=== PATIENT | female | born 1960 | race Caucasian/White ===

== ENCOUNTER 2019-07-27 08:49 | Outpatient (CLI) | payer OTHER, SELFPAY ==
--- NOTE | 2019-07-27 11:00 | NEURO_ITS ---
Patient Number: [id number] Impression: # Complains of numbness of hands and feet. # Neuropathy involving lower extremities more than upper extremities with superimposed mild bilateral Carpal Tunnel Syndrome and left ulnar neuropathy across the elbow. # Needle/EMG exam revealed mild neurogenic changes in left 1st DI and APB. Nerve Conduction Studies Anti Sensory Summary Table Stim Site NR Peak (ms) P-T Amp (?V) Site1 Site2 Delta-P (ms) Dist (cm) Kamlesh (m/s) Left Median Anti Sensory (2-3nd Digit) Wrist 3.1 53.4 Wrist 2-3nd Digit 3.1 14.0 45 Wrist 3.3 36.2 Wrist 2-3nd Digit 3.1 14.0 45 Right Median Anti Sensory (2-3nd Digit) Wrist 3.1 48.1 Wrist 2-3nd Digit 3.1 14.0 45 Wrist 3.1 49.2 Wrist 2-3nd Digit 3.1 14.0 45 Left Radial Anti Sensory (Base 1st Digit) Wrist 2.5 35.1 Wrist Base 1st Digit 2.5 0.0 Right Radial Anti Sensory (Base 1st Digit) Wrist 2.5 13.6 Wrist Base 1st Digit 2.5 0.0 Left Sup Fibular Anti Sensory (Ant Lat Mall) 14 cm 4.0 11.4 14 cm Ant Lat Mall 4.0 16.0 40 Right Sup Fibular Anti Sensory (Ant Lat Mall) 14 cm 3.9 8.1 14 cm Ant Lat Mall 3.9 16.0 41 Left Sural Anti Sensory (Lat Mall) Calf 4.7 7.5 Calf Lat Mall 4.7 16.0 34 Right Sural Anti Sensory (Lat Mall) Calf 4.7 6.6 Calf Lat Mall 4.7 16.0 34 Left Ulnar Anti Sensory (5th Digit) Wrist 3.2 47.0 Wrist 5th Digit 3.2 14.0 44 Right Ulnar Anti Sensory (5th Digit) Wrist 2.8 64.0 Wrist 5th Digit 2.8 14.0 50 Motor Summary Table Stim Site NR Onset (ms) O-P Amp (mV) Site1 Site2 Delta-0 (ms) Dist (cm) Kamlesh (m/s) Left Median Motor (Abd Poll Brev) Wrist 5.7 4.1 Elbow Wrist 5.7 28.0 49 Elbow 11.4 4.6 Right Median Motor (Abd Poll Brev) Wrist 5.2 3.0 Elbow Wrist 5.7 28.0 49 Elbow 10.9 2.4 Left Peroneal Motor (Vastus Med) Ankle 8.2 1.8 Popit Ankle 10.2 37.0 36 Popit 18.4 1.6 Right Peroneal Motor (Vastus Med) Ankle 9.2 2.0 Popit Ankle 9.2 35.0 38 Popit 18.4 1.6 Left Tibial Motor (Abd Wasserman Brev) Ankle 9.4 1.1 Knee Ankle 10.5 40.0 38 Knee 19.9 1.3 Right Tibial Motor (Abd Wasserman Brev) Ankle 7.0 2.8 Knee Ankle 11.0 41.0 37 Knee 18.0 2.0 Left Ulnar Motor (Abd Dig Minimi) Wrist 4.3 5.8 A Elbow Wrist 7.4 29.0 39 A Elbow 11.7 4.6 B Elbow Wrist 5.0 23.0 46 B Elbow 9.3 3.9 Right Ulnar Motor (Abd Dig Minimi) Wrist 3.7 3.8 A Elbow Wrist 6.1 29.0 48 A Elbow 9.8 1.8 F Wave Studies NR F-Lat (ms) L-R F-Lat (ms) Left Median (Mrkrs) (Abd Poll Brev) 31.75 0.82 Right Median (Mrkrs) (Abd Poll Brev) 32.57 0.82 Left Peroneal (Mrkrs) (EDB) 61.10 0.57 Right Peroneal (Mrkrs) (EDB) 60.53 0.57 Left Tibial (Mrkrs) (Abd Hallucis) 60.76 2.22 Right Tibial (Mrkrs) (Abd Hallucis) 62.98 2.22 Left Ulnar (Mrkrs) (Abd Dig Min) 30.92 0.00 Right Ulnar (Mrkrs) (Abd Dig Min) 30.92 0.00 EMG Side Muscle Nerve Root Ins Act Fibs Amp Dur Recrt Comment Right 1stDorInt Ulnar C8-T1 Nml Nml Nml Nml Nml Right Ext Indicis Radial (Post Int) C7-8 Nml Nml Nml Nml Nml Right Ext Digitorum Radial (Post Int) C7-8 Nml Nml Nml Nml Nml Right BrachioRad Radial C5-6 Nml Nml Nml Nml Nml Right Pro
== END 2019-07-27 08:50 | disposition home or self-care (01) ==
PROVIDERS: PCP Family Medicine; Visit Provider Psychiatry & Neurology Neurology
DX: G12.20 Motor neuron disease, unspecified (principal); G56.03 Carpal tunnel syndrome, bilateral upper limbs; G56.22 Lesion of ulnar nerve, left upper limb
CPT/HCPCS: 95886; 95913

== ENCOUNTER 2021-12-19 08:35 | Outpatient (CLI) | payer OTHER, SELFPAY ==
--- NOTE | ~2021-12-19 | MM_ITS ---
EXAMINATION: MM screening miri BI w breanna HISTORY: Screening mammogram TECHNIQUE: Craniocaudal and mediolateral oblique 3-D tomosynthesis images were obtained and synthetic 2-D images were generated. CAD analysis was submitted and interpreted. COMPARISON: 01/15/2017, 09/28/2015 bilateral screening mammogram examinations BREAST PARENCHYMAL COMPOSITION: There are scattered areas of fibroglandular density. FINDINGS: There is a biopsy marker in the left breast; history of prior benign left breast biopsy in 2012. Stable benign small circumscribed lymph node in the posterior upper right breast on MLO view, u nchanged since 01/15/2017. There is no evidence of suspicious mass, calcification, or architectural d istortion to suggest malignancy in either breast. There has been no suspicious interval change. IMPRESSION: 1. No mammographic evidence of malignancy. 2. Recommend routine screening mammography in one year. BI-RADS Category 2: Benign finding(s). Reviewed, dictated and finalized at location A.
== END 2021-12-19 08:36 | disposition home or self-care (01) ==
LOC: ANHIMG 08:37
PROVIDERS: PCP Family Medicine; Visit Provider Obstetrics & Gynecology
DX: Z12.31 Encounter for screening mammogram for malignant neoplasm of breast (principal)
CPT/HCPCS: 77063; 77067

== ENCOUNTER → 2022-01-14 14:57 | Outpatient (CLI) | payer OTHER, SELFPAY ==
--- NOTE | ~2022-01-14 | DEXA_ITS ---
Bone Density Report Name: MOR MEAD Age: 61 Sex: Female Ethnicity: White Date of : 1960 Indication: postmenopausal; screening for osteoporosis; hysterectomy; Referring Provider: GADIEL, AMAYA Montelongo Study: Bone densitometry was performed. Exam Date: January 14, 2022 Accession number: [id number] Bone Density: Region BMD T-score Z-score Classification AP Spine (L1-L4) 1.187 1.3 2.7 Normal Femoral Neck (Left) 0.741 -1.0 0.3 Normal Total Hip (Left) 0.881 -0.5 0.5 Normal Femoral Neck (Right) 0.720 -1.2 0.1 Osteopenia Total Hip (Right) 0.870 -0.6 0.4 Normal Total Hip Mean 0.876 -0.6 0.5 Normal World Health Organization criteria for BMD impression classify patients as: Normal (T-score at or above -1.0), Osteopenia (T-score between -1.0 and -2.5), or Osteoporosis (T-score at or below -2.5). 10-year Fracture Risk(1): Major Osteoporotic Fracture 6.7% Hip Fracture 0.8% Reported Risk Factors: [place] (), Neck BMD=0.720, BMI=21.1, smoking (1) FRAX(R) Version 3.08. Fracture probability calculated for an untreated patient. Fracture probability may be lower if the patient has received treatment. Clinical Information Provided by Patient: Smokes Has used the following medications: Vitamin D Has the following medical conditions: Hysterectomy Patient maximum height was 67.75 Menopause Age: 41 Drinks caffeinated beverages Onset of menses at age 12 Number of children 2 Impression: The patient has low bone mass, based on the Right Femoral Neck T-score. The patient has an estimated ten-year risk of hip fracture of 0.8% and an estimated ten-year risk of major fracture of 6.7%, based on the WHO FRAX algorithm. The patient has risk factors, including: smoking. Discussion: BONE DENSITY IS LOW AT ONE OR MORE SKELETAL SITES. This patient's lowest T-score is low at one or more skeletal sites. It meets the World Health Organization's (WHO) criteria for ?low bone mass? (T-score between -1.0 and -2.5). The patient's 10-year risk of fracture as calculated by FRAX is less than the threshold where pharmacological therapy is recommended by the National Osteoporosis Foundation (NOF). However, all treatment decisions require clinical judgment and consideration of individual patient factors, including patient preferences, comorbidities, previous drug use, risk factors not captured in the FRAX model (e.g., frailty, falls, vitamin D deficiency, increased bone turnover, interval significant decline in bone density) and possible under or overestimation of fracture risk by FRAX. The patient should follow a healthful lifestyle (good nutrition with adequate calcium and vitamin D, and appropriate weight-bearing exercise). Follow-Up: Consider repeating this study in 2 to 3 years to reassess this patient's status,
== END ==
PROVIDERS: PCP Family Medicine; Visit Provider Family Medicine
DX: Z78.0 Asymptomatic menopausal state (principal); Z72.0 Tobacco use; M85.851 Other specified disorders of bone density and structure, right thigh
CPT/HCPCS: 77080

== ENCOUNTER → 2022-01-26 15:25 | Outpatient (CLI) | payer OTHER, SELFPAY ==
--- NOTE | ~2022-01-26 | CT_ITS ---
EXAMINATION: CT lung screening DATE: 01/26/2022 15:47 INDICATION: Personal history of nicotine dependence, current smoker with 45 pack year history TECHNIQUE: Computed tomography (CT) of the chest was performed without intravenous contrast. The dose -length product (DLP) was 44.83 mGy-cm. Automated exposure control and iterative reconstruction techn [employer] were employed. COMPARISON: None FINDINGS: The lungs are free of acute opacities. There is mild emphysema. No suspicious pulmonary nod ules are identified. No pleural effusion or pneumothorax. No pathologically enlarged thoracic lymph n odes are identified. The heart size is normal. There is moderate thoracic spondylosis. IMPRESSION: 1. Lung-RADS category 1: Negative. Continue annual screening with noncontrast low-dose chest CT in 12 months. Reviewed, dictated and finalized at location B. TRICAL MECHANICAL TECHNICIAN IMPRESSION: 1. Lung-RADS category 1: Negative. Continue annual screening with noncontrast l ow-dose chest CT in 12 months.
== END ==
PROVIDERS: PCP Family Medicine; Visit Provider Family Medicine
DX: Z12.2 Encounter for screening for malignant neoplasm of respiratory organs (principal); Z87.891 Personal history of nicotine dependence
CPT/HCPCS: 71271

== ENCOUNTER 2023-12-17 09:13 | Outpatient (CLI) | payer OTHER, SELFPAY ==
--- NOTE | ~2023-12-17 | MR_ITS ---
Procedure: MR lumbar spine wo con Ordering provider: Sampson Rebollar MD History: . low back pain, spondylosis with myelopathy . Comparison: March 09, 2012 Technique: MRI thoracic spine without contrast. FINDINGS: SPINAL CORD: Normal. VERTEBRAL BODIES: Normal height and alignment. No compression fracture. Normal marrow signal. DISK SPACES: Degenerative disc disease at the level of L5-S1. T12-L1: bilateral facet joint disease. L1-L2: Sequestrated disc is seen posterior to L2. Other differential includes small meningioma. L2-L3: Mild spinal canal stenosis. Thickening of the ligamenta flava slight narrowing of the foramina more on the right side. L3-L4: Moderate to severe spinal canal stenosis. Diffuse disc bulge with thickening of the ligamenta flava. Bilateral narrowing of the foramina. L4-L5: Severe spinal canal stenosis. Diffuse disc bulge with thickening of the ligamenta flava. Bilat eral facet joint disease. Bilateral narrowing of the foramina with root compression PARASPINOUS SOFT TISSUES: Normal. IMPRESSION: No compression fracture. Multilevel spinal canal stenosis, thickening of the ligamenta flava and intervertebral foraminal narr owing. Sequestrated disc seen posterior to L2. Reviewed, dictated and finalized at location A. IMPRESSION: No compression fracture. Multilevel spinal canal stenosis, thickening of the ligamenta flava and interve rtebral foraminal narrowing. Sequestrated disc seen posterior to L2.
== END 2023-12-17 09:14 | disposition home or self-care (01) ==
LOC: GOSHIMG 09:16
PROVIDERS: PCP Emergency Medicine; Visit Provider Emergency Medicine
DX: M48.061 Spinal stenosis, lumbar region without neurogenic claudication (principal); M51.26 Other intervertebral disc displacement, lumbar region
CPT/HCPCS: 72148

== ENCOUNTER 2023-12-17 09:57 | Outpatient (CLI) | payer OTHER, SELFPAY ==
[2023-12-17 14:19] LABS: Alanine Aminotransferase 19 U/L (6-35); Albumin Level 4.4 g/dL (3.5-5.1); Alkaline Phosphatase 86 U/L (38-126); Anion Gap 5 mmol/L (4-12); Aspartate Amino Transferase 53 U/L (14-36); Bilirubin,Total 0.3 mg/dL (0.2-1.3); Blood Urea Nitrogen 11 mg/dL (7-17); Calcium 9.3 mg/dL (8.4-10.2); Carbon Dioxide 31 mmol/L (22-30); Chloride 102 mmol/L (98-107); Cholesterol 269 mg/dL (0-200); Estimated Glomerular Filt Rate > 60; Glucose 89 mg/dL (65-110); HDL Direct 77 mg/dL; Potassium 4.5 mmol/L (3.4-5.0); Sodium 138 mmol/L (137-145); Triglycerides 64 mg/dL (<150)
[2023-12-17 14:31] LABS: LDL Cholesterol Direct 165 mg/dL
== END 2023-12-17 09:58 | disposition home or self-care (01) ==
LOC: ANHGOSHLAB 09:58
PROVIDERS: PCP Emergency Medicine; Visit Provider Emergency Medicine
DX: E78.5 Hyperlipidemia, unspecified (principal)
CPT/HCPCS: 36415; 80053; 80061

== ENCOUNTER 2024-03-31 09:02 | Emergency (ER) | payer OTHER, SELFPAY ==
--- NOTE | ~2024-03-31 | CT_ITS ---
EXAMINATION: CT lumbar spine wo con DATE: 03/31/2024 11:48 INDICATION: Right-sided lumbar radiculopathy. TECHNIQUE: Computed tomography (CT) of the lumbar spine was performed without intravenous contrast. A utomated exposure control and iterative reconstruction technique were employed. The dose-length produ ct was 278.45 mGy-cm. COMPARISON: Lumbar spine MRI 12/17/2023 FINDINGS: There is 4 degrees levocurvature of lumbar spine. Vertebral body heights are normal. There is mildly decreased disc height at L3-L4 and L5-S1. The following disc levels are specifically discus sed: L1-L2: The disc is bulging. There is mild bilateral facet joint osteoarthritis. There is mild bilater al neural foraminal stenosis. There is mild central canal stenosis. L2-L3: The disc is bulging. There is a sequestered disc posterior to L2 vertebral body. There is manny re right and moderate left facet joint osteoarthritis. There is moderate right and mild left neural f oraminal stenosis. There is mild central canal stenosis. L3-L4: The disc is bulging. There is severe bilateral facet joint osteoarthritis. There is moderate b ilateral neural foraminal stenosis. There is mild central canal stenosis. L4-L5: The disc is bulging. There is severe bilateral facet joint osteoarthritis. There is moderate b ilateral neural foraminal stenosis. There is mild central canal stenosis. L5-S1: The disc is bulging. There is severe bilateral facet joint osteoarthritis. There is mild bilat eral neural foraminal stenosis. There is mild central canal stenosis. IMPRESSION: 1. Moderate lumbar spondylosis, stable from 12/17/2023. Reviewed, dictated and finalized at location A. RPRISE BUSINESS ARCHITECT
[2024-03-31 09:03] VITALS: BP 130/64; PULSE 72; RESP 16; TEMP 36.6; O2SAT 100
--- NOTE | 2024-03-31 11:33 | ED_ITS ---
HPI - Back Pain/Injury General Chief Complaint: Back Pain/Injury Stated Complaint: back pain Time Seen by Provider: 03/31/24 11:15 Source: patient Mode of arrival: ambulatory Limitations: no limitations History of Present Illness HPI Narrative: This is a 63-year-old female with PMH of chronic lumbar stenosis and right sciatica presents to the ED for chief complaint of low back pain. States that over the past week and half she has had increased right lower back pain that radiates into the right buttock and for thigh. She states occasionally the pain radiates to the right foot. States that occasionally she will get a numbness/tingling sensation to the right foot. Denies groin numbness, bowel or bladder dysfunction, fevers, chills. Denies extremity weakness. Denies any left-sided symptoms. States she has been seen by pain management the past and told that she needs to see Neurosurgery, however does not want to have any surgery. Related Data Home Medications ?Medication ?Instructions ?Recorded ?Confirmed ?Last Taken ?Type duloxetine 60 mg capsule,delayed 60 mg PO DAILY 05/22/19 02/25/24 Unknown History release (Cymbalta) trazodone 50 mg tablet 200 mg PO .qhs 05/22/19 02/25/24 Unknown History lamotrigine 100 mg tablet 150 mg PO DAILY 06/04/23 02/25/24 Unknown History (Lamictal) Allergies Allergy/AdvReac Type Severity Reaction Status Date / Time No Known Allergies Allergy Verified 02/25/24 11:03 Review of Systems Review of Systems: All systems as dictated in [facility] Family History Family History Father Depression Social History Social History Smoking status: Current every day smoker (1 ppd for 40+ years) Alcohol intake: never Substance use: never Substance use type: does not use Do You Feel Safe in your Home?: Yes Lack of Transportation: No Lack of Food: Never True Current Housing: I Have Housing Concerned About Future Housing: No Difficulty Paying Gas/Electric Bills: No Difficulty Paying for Meds: No Currently Unemployed: No Education: Don't Know Difficulty w/ Childcare or Family Care: No Living arrangements: with family Occupation/Education: occupation Gender identity (if verbalized by the patient): Female Sexual Orientation (if Verbalized by the Patient): Straight or Heterosexual Spiritual care concerns: No Agree to blood products: No Exam Narrative: GENERAL: Well-appearing, well-nourished, and in no acute distress. HEAD: Normocephalic, atraumatic. EYES: PERRLA and EOMI. ENT: Nares clear, no rhinorrhea or epistaxis. Mucous membranes moist. Oropharynx without tonsillar hypertrophy exudate or other lesions. NECK: Supple. No adenopathy or masses. CHEST: No respiratory distress. Clear to auscultation. No wheezes rales or rhonchi HEART: Regular rate and rhythm. No murmur heard. Normal peripheral pulses. ABDOMEN: Soft, nontender, nondistended, normal active bowel sounds. MSK: Normal range of motion. No edema. No midline spinal tenderness. Positive straight leg raise on the right. Negative SLR on the left. 5/5 strength and sensation in the upper and lower extremities SKIN: Warm, dry, no rash. NEURO: Alert and oriented x4. No focal deficits. PSYCH: Normal mood and affect. Course Vital Signs Vital signs: Vital Signs Temperature 97.9 F 03/31/24 09:03 Pulse Rate 72 03/31/24 09:03 Respiratory Rate 16 03/31/24 09:03 Blood Pressure 130/64 03/31/24 09:03 Pulse Oximetry 100 03/31/24 09:03 Oxygen Delivery Room Air 03/31/24 09:03 Temperature 97.8 F 03/31/24 12:00 Pulse Rate 74 03/31/24 12:00 Respiratory Rate 16 03/31/24 12:00 Blood Pressure 143/90 H 03/31/24 12:00 Pulse Oximetry 100 03/31/24 12:00 Oxygen Delivery Room Air 03/31/24 09:03 MDM - Back Pain/Injury MDM Narrative Medical decision making narrative: This is a this 63-year-old female with acute on chronic sciatica. Vitals are normal. No red flag back signs today. Exam remarkable for the above straight leg raise positive on the right. No red flag back signs on exam CT imaging of the lumbar spine without contrast: IMPRESSION: 1. Moderate lumbar spondylosis, stable from 12/17/2023. Presentation consistent with lumbar stenosis, radiculopathy. On re- evaluation, Patient is doing mildly better. States the pain is still there but it is more tolerable. She is visibly more comfortable and able to sit in the chair at this point, which she could not do earlier. Encouraged continue taking her normal pain medications and contact her prescriber of tramadol. Rx for new Medrol Dosepak. Patient will be discharged in stable condition. Supportive measures discussed and return precautions given. Patient is understanding and agreeable with plan for discharge with PCP follow-up. Differential Diagnosis Differential diagnosis: Likely lumbar radiculopathy, sciatica, strain of lumbar region, pyelonephritis, thoracic back pain and discitis Discharge Plan Discharge Clinical Impression: Lumbar radiculopathy Patient Disposition: Home, Self-Care Condition: Stable Instructions: Antibiotic Form, Lumbar Radiculopathy (ED) Additional Instructions: Your exam and imaging shows stable lumbar stenosis from previous scans. Please continue taking your regular pain medications. Use Medrol Dosepak as prescribed for steroid pack. Follow-up with neurosurgery. If you have any new or worsening symptoms please return to the ER for further evaluation. Patient Language: Kinyarwanda Prescriptions: New methylprednisolone [Medrol (Robles)] 4 mg tablets,dose pack See Rx Instructions .ROUTE .COMPLEX Qty: 21 0RF Rx Instructions: for 6 days No Action duloxetine [Cymbalta] 60 mg capsule,delayed release(DR/EC) 60 mg PO DAILY trazodone 50 mg tablet 200 mg PO .qhs lamotrigine [Lamictal] 100 mg tablet 150 mg PO DAILY rosuvastatin 5 mg tablet 5 mg PO DAILY Qty: 90 0RF valacyclovir 1 gram tablet 1,000 mg PO Q12H Qty: 4 3RF tramadol 50 mg tablet 50 mg PO Q12H PRN (Reason: pain) Qty: 60 2RF cyclobenzaprine 5 mg tablet 5 mg PO BID PRN (Reason: muscle spasm) Qty: 60 1RF Follow-up/Referrals: Koki Car MD [Physician] - Angelita Garcia DO [Primary Care Provider] - Time of Disposition: 13:07
[2024-03-31 12:00] VITALS: BP 143/90; PULSE 74; RESP 16; TEMP 36.6; O2SAT 100
[2024-03-31] MEDS: ACETAMINOPHEN 500 MG TABLET 1000 MG PO (12:12)
[2024-03-31] MEDS: diazePAM INJ (*CRX) 10 MG/2 ML SYRINGE 5 MG IV PUSH (12:13)
[2024-03-31] MEDS: LIDOCAINE 5% PATCH 1 PATCH TRANSDERM (12:14)
[2024-03-31] MEDS: KETOROLAC 15 MG/ML VIAL (*BKC) 30 MG IV PUSH (12:16)
== END 2024-03-31 13:34 | disposition home or self-care (01) ==
PROVIDERS: Emergency Provider Physician Assistant; PCP Family Medicine
DX: M47.26 Other spondylosis with radiculopathy, lumbar region (principal); F17.210 Nicotine dependence, cigarettes, uncomplicated
CPT/HCPCS: 72131; 96374; 96375; 99284; A9270; J1885; J3360

== ENCOUNTER 2024-05-15 09:00 | Outpatient (RCR) | payer OTHER, SELFPAY ==
--- NOTE | 2024-04-11 14:41 | OPREHPOC ---
Outpatient Therapy Plan of Care This is a Multidisciplinary Plan of Care that may contain components documented by all disciplines (PT, OT, and ST.) PT Problem 1 PT Problem #1 Knowledge Deficit PT Goal 1 Goal / Goal Update 1. Pt to be IND with issued HEP Target Visit 10 PT Problem 2 PT Problem #2 Pain PT Goal 1 Goal / Goal Update 1. Pt to report low back pain no greater than 3/10 in the last week, 2. Pt to decline radicular symptoms in the last week 3. Pt to report 75% return to PLOF. PT Problem 3 PT Problem #3 Impaired Functional Mobility PT Goal 1 Goal / Goal Update 1. Pt to lift 20lb from ground level with good mechanics and without an increase in symptoms.
--- NOTE | 2024-04-11 14:41 | PTOPEVAL1 ---
Assessment and note entered by Kimberlyn Alexander, PT, DPT Evaluation Information Assessment Status Evaluation Diagnosis lumbar radiculopathy ICD-10 Condition Codes (PT) Pain in low back M54.50,Radiculopathy, lumbar region M54.16 Subjective Information Pt states a long history of back pain. States a couple of weeks ago she tweaked her back, she went to the ER and they were unable to help her. Pt states she had a prescription for tramadol but took this too frequently and cannot get a refill for 4 more days. She has been given muscle relaxers, a steroid, and pain meds. She has a pain management follow up next week and an appointment with neurosurgery in May. She reports radiating symptoms down the entire length of her R leg, states her leg is numb and always cold. Pt is retired, pt enjoys working out and riding the motorcycle with her . Reported Pain Level Pain Score 4: Self Report Assessment PT Clinical Summary Pt presents to therapy today for her initial evaluation with a diagnosis of sciatic pain, she demonstrates s/s consistent with piriformis syndrome with sciatic nerve irritation. There is weakness of her lateral hip abductors, tenderness to palpation of her R piriformis, radicular pain down her R leg, and a (+) slump test on the R. Skilled therapy services are indicated to address the deficits noted above, to manage pain, and to return to PLOF. Plan of Care Interventions Electrical Stimulation,Gait Training,Hot Pack/Cold Pack,Manual Therapy,Neuro Re-education,Patient/ Caregiver Education,Therapeutic Activities, Therapeutic Exercise PT Services Indicated Yes Treatment Frequency and 2x/wk for 10 visits Duration These treatments will address the objective and functional deficits as defined above. The patient will be advanced safely and appropriately in order for the patient to progress towards his/her prior level of function. Additional exercises will be introduced and as well as a comprehensive home exercise program upon discharge, if needed, ?to ensure carryover of functional gains achieved in the clinic. This treatment plan has been reviewed and agreement upon by the patient.
--- NOTE | 2024-04-21 14:28 | PCPTNOTE ---
Patient no showed to appointment this date. Called and spoke with patient who states she forgot she had an appointment this date,
--- NOTE | 2024-04-26 14:38 | PCPTNOTE ---
Pts appointment had to be rescheduled d/t the treatment therapist being out of the office d/t illness.
--- NOTE | 2024-05-15 09:54 | OPREHPOC ---
Outpatient Therapy Plan of Care This is a Multidisciplinary Plan of Care that may contain components documented by all disciplines (PT, OT, and ST.) PT Problem 1 PT Problem #1 Knowledge Deficit PT Goal 1 Goal / Goal Update 1. Pt to be IND with issued HEP Target Visit 10 Progress Met PT Problem 2 PT Problem #2 Pain PT Goal 1 Goal / Goal Update 1. Pt to report low back pain no greater than 3/10 in the last week, 2. Pt to decline radicular symptoms in the last week 3. Pt to report 75% return to PLOF. 05/15/24: 1-2. met 3. met, reports 95% Progress Met PT Problem 3 PT Problem #3 Impaired Functional Mobility PT Goal 1 Goal / Goal Update 1. Pt to lift 20lb from ground level with good mechanics and without an increase in symptoms. 05/15/24: met, 25lb Progress Met
--- NOTE | 2024-05-15 09:54 | PTOPEVAL1 ---
Assessment and note entered by Kimberlyn Alexander, PT, DPT Evaluation Information Assessment Status Discharge Diagnosis lumbar radiculopathy ICD-10 Condition Codes (PT) Pain in low back M54.50,Radiculopathy, lumbar region M54.16 Subjective Information Pt states she feels like her back and leg are 95% better than what they were when she started. She states she is back to her baseline pain, burning and aching. Reported Pain Level Pain Score 3: Self Report Assessment PT Clinical Summary Pt presents to therapy today for her progress report following 9 visits to treat her diagnosis of sciatic pain. Today she demonstrates improved movement mechanics, improved strength, and improved mobility. She demonstrates good lifting mechanics with a 25lb box lift without an increase in pain. She has met all of her therapy goals and no longer requires skilled services. She will be discharged at this time. Plan of Care Interventions Electrical Stimulation,Gait Training,Hot Pack/Cold Pack,Manual Therapy,Neuro Re-education,Patient/ Caregiver Education,Therapeutic Activities, Therapeutic Exercise PT Services Indicated No Treatment Frequency and d/c to HEP Duration These treatments will address the objective and functional deficits as defined above. The patient will be advanced safely and appropriately in order for the patient to progress towards his/her prior level of function. Additional exercises will be introduced and as well as a comprehensive home exercise program upon discharge, if needed, ?to ensure carryover of functional gains achieved in the clinic. This treatment plan has been reviewed and agreement upon by the patient.
== END 2024-05-15 14:23 | disposition home or self-care (01) ==
LOC: ANHGOSHPT 09:00
PROVIDERS: PCP Family Medicine; Visit Provider Nurse Practitioner
DX: M54.30 Sciatica, unspecified side (principal)
CPT/HCPCS: 97110; 97140; 97161; 97530

== ENCOUNTER 2024-07-12 11:20 | Outpatient (CLI) | payer OTHER, SELFPAY ==
--- OUTSIDE RECORDS SUMMARY | 2024-07-12 13:22 | XMS_ITS | Encounter Summary ---
Author Organization [facility] Healthcare Address [address] [place] [address] Care Team Providers Care Personnel Research Psychologist Name Role Phone Ventura Stewart MD Primary Care Provider [phone] Reason for Visit * Reason Onset Date Comments FV2 APPT 05/14/2020 Encounter Details Date Type Department Care Team (Late st Contact Info) Description 05/14/2020 Telephone [facility] [address] [place], [place] [id number] Radha Hubbard MD PhD [id number] [place], [place] [id number] FV2 APPT Social History Tobacco Use Types Packs/Day Years Used Date Smoking Tobacco: Every Day Cigarettes 1 40 Smokeless Tobacco: Never Alcohol Use Standard Drinks/Week Comments Not Currently 0 (1 standard drink = 0.6 oz pur e alcohol) Recovering alcoholic. 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 Author CCM Chronic Pain Care Plan Chronic Care Management No change(06/20 2:47 PM CDT) No Corin Villalobos RN Note: Problem: Chronic Pain Goals: 1. Minimize further functional decline 2. Maximize quality of life 3. Control pain Strategies: - Activity/exercise program recommendation - Conservative stepwise pain medicine strategy with multi-disciplinary approach - Recommend healthy lifestyle strategies and compensatory methods as needed Reduce the likelihood of falling Lifestyle No Corin Villalobos, RN Note: Below are four things you can do to prevent falls: 1. Begin an exercise program to improve your leg strength & balance 2. Ask your doctor or pharmacist to review your medicines 3. Get annual eye check-ups & update your eyeglasses 4. Make your home safer by: Removing clutter & tripping hazards Putting railings on all stairs & adding grab bars in the bathroom Having good lighting, especially on stairs Contact your local [facility] for information on exercise, fall prevention programs, or options for improving home safety. Reduce the likelihood of falling Lifestyle [place] Note: Below are four things you can do to prevent falls: 1. Begin an exercise program to improve your leg strength & balance 2. Ask your doctor or pharmacist to review your medicines 3. Get annual eye check-ups & update your eyeglasses 4. Make your home safer by: Removing clutter & tripping hazards Putting railings on all stairs & adding grab bars in the bathroom Having good lighting, especially on stairs Contact your local [facility] for information on exercise, fall prevention programs, or options for improving home safety. documented as of this encounter Visit Diagnoses Not on filedocumented in this encounter Additional Health Concerns Infection Onset Date Last Indicated Resolved Time COVID: Suspected 11/06/2020 11/06/2020 11/06/2020 6:03 PM CDT documented as of this encounter Care Teams Personnel Research Psychologist Relationship Specialty Start Date End Date Ventura Stewart MD [address] [place] [address] PCP - General 06/30/16 documented as of this encounter
--- OUTSIDE RECORDS SUMMARY | 2024-07-12 13:22 | XMS_ITS | Clinical Summary ---
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 Gender Identity Not on file Sexual Orientation Not on file Plan of Treatment Health Maintenance Due Date Last Done Comments DTAP/TDAP/TD VACCINES (1 - Tdap) 1980 HPV/Cotest (21-29) 1982 CERVICAL CANCER SCREENING 10/27/1991 HPV/Cotest (30-65) 10/27/1991 PAP SMEAR 10/27/1991 BREAST CANCER SCREENING 2001 COLORECTAL SCREENING 2006 Colorectal Cancer Screening 2006 FIT-DNA Q 3 years 2006 FIT/FOBT Q 1 year 2006 Flex Sig/CT Colonography Q 5 years 2006 ZOSTER VACCINE (1 of 2) 10/27/2011 INFLUENZA VACCINE (#1) 2023 RSV VACCINE (60+ or ) (1 - 1-dose 75+ series) 2036 Care Teams Sap Senior Developer Relationship Specialty Start Date End Date Cruz Stewart MD [address] [place] [address] PCP - General 01/03/01
--- OUTSIDE RECORDS SUMMARY | 2024-07-12 13:22 | XMS_ITS | Clinical Summary ---
Author Organization [facility] Address [address] [address] Care Team Providers Care Wrapper Stripper Name Role Phone Ventura Stewart MD Primary Care Provider [phone] Allergies No known active allergies Medications DULoxetine DR (CYMBALTA) 60 mg capsule Take 60 mg by mouth daily Active lamoTRIgine (LaMICtal) 150 mg tablet Take 150 mg by mouth daily Active traZODone (DESYREL) 50 mg tablet Take 4 tablets nightly. 09/14/2017 Active ibuprofen (ADVIL,MOTRIN) 200 mg tab/cap Take 200 mg by mouth every 6 (six) hours as needed for pain 2-4 tabs prn Active atorvastatin (LIPITOR) 10 mg tablet 05/21/2021 Active traMADoL (ULTRAM) 50 mg tabletIndicatio ns:Chronic pain syndrome TAKE 1 TABLET(50 MG) BY MOUTH TWICE DAILY NEEDED FOR PAIN 60 tablet 09/25/2021 Active cyclobenzaprine (FLEXERIL) 5 mg tabletIndicatio ns:Chronic pain syndrome 15 BID PRN 180 tablet 3 09/25/2021 Active Active Problems Problem Noted Date Diagnosed Date DDD (degenerative disc disease), lumbar 07/04/19 22 Sacroiliitis (HCC) - Right 07/03/2021 Sinus congestion 11/06/2020 Chronic right-sided low back pain without sciati ca 08/17/2018 Sacroiliac inflammation (CMS/HCC) - Right 2018 Other chronic pain 08/17/2018 Chronic, continuous use of opioids 08/17/2018 Medical History Medical History Date Comments Personal history of other sp ecified conditions History of headache - (Added by TW Conv) Alcohol dependence in remission (HCC) History of alcoholism - (Added by TW Conv) Chronic pain disorder Low back pain Social History Tobacco Use Types Packs/Day Years Used Date Smoking Tobacco: Every Day Cigarettes 1 40 Smokeless Tobacco: Never Tobacco Cessation:Ready to Q uit: No; Counseling Given: Yes Comments:info given Alcohol Use Standard Drinks/Week Comments Not Currently 0 (1 standard drink = 0.6 oz pur e alcohol) Recovering alcoholic. AUDIT-C Answer Date Recorded Q1: How often do you have a drink containing alc ohol? Never 07/03/2021 Average Number of Drinks Not on file 022 Frequency of Binge Drinking Not on file 06/20 Comments No Sex and Gender Information Value Date Recorded Sex Assigned at Not on file Legal Sex Female 10:49 PM LIABILITY CLAIMS REPRESENTATIVE Gender Identity Not on file Sexual Orientation Not on file Obstetrics History Last Filed Vital Signs Vital Sign Reading Time Taken Comments Blood Pressure 135/73 07/03/2021 2:46 PM CDT Pulse 100 07/03/2021 2:46 PM CDT Temperature 36.4 C (97.5 F) 07/03/2021 2:46 PM CDT Respiratory Rate 16 07/03/2021 2:46 PM CDT Oxygen Saturation 96% 07/03/2021 2:46 PM CDT Inhaled Oxygen Concentration - - Weight 61.2 kg (135 lb) 07/03/2021 2:46 PM CDT Height 170.2 cm (5' 7 ) 07/03/2021 2:46 PM CDT Body Mass Index 21.14 07/03/2021 2:46 PM CDT Plan of Treatment Not on file Goals Goal Patient Goal Type Associated Problems Recent Progress Patient-Stated? Author CCM Chronic Pain Care Plan Chronic Care Management No change(06/20 2:47 PM CDT) No Corin Villalobos, RN Note: Problem: Chronic Pain Goals: 1. [...] lighting, especially on stairs Contact your local [facility] for information on exercise, fall prevention [...] good lighting, especially on stairs Contact your [facility] for information on exercise, fall prevention programs, or options for improving home safety. Insurance [facility] CHOICE PLUS [facility] CHOICE PLUS [facility] CHOICE PLUS Care Teams Wrapper Stripper Relationship Specialty Start Date End Date Ventura Stewart MD [address] [place] [address] PCP - General 06/30/16
--- OUTSIDE RECORDS SUMMARY | 2024-07-12 13:22 | XMS_ITS | Data Portability ---
Author Organization [facility] [employer], Main Office Address [address] [place] [address] Assessment No assessment recorded. Plan of Treatment Reminders Order Date Submit Date Provider Last Modified By Organization Details Last Modified Time Details Appointments None recorded. Lab lipid panel, serum 2022 023 [email or web address] Not available 3 08:26:16 rapid flu (A+B) 2022 023 [email or web address] Not available 3 12:57:25 rapid strep group A, throat 2022 023 [facility] [address], [place], [address], 3 11:56:34 vitamin D3, 25-hydroxy , serum 2022 023 [email or web address] Not available 3 12:02:46 lipid panel, serum 2022 023 [email or web address] Not available 3 12:08:12 hepatic function panel, serum 2022 023 [email or web address] Not available 3 12:20:21 BMP, serum or plasma 2022 023 [email or web address] Not available 3 12:20:54 CBC w/ auto diff 2022 023 [email or web address] Not available 3 12:22:18 Referral None recorded. Procedures None recorded. Surgeries None recorded. Imaging None recorded. Medication Orders None recorded. Patient TargetsNo targets recorded. Patient InstructionsNo instructions recorded. Reason for Referral None Reported. Results Created Date Observation Date Name Description Value Unit Range Abnormal Flag Note LastModifiedBy Organization Detail LastModifiedTime 10/02/19 22 10/02/2021 VITAM IN D, 25-HY DROXY vitamin D, 25-hydroxy 36.1 NG/mL 30.0-1 00.0 Vitam in D defic iency has been defin ed by the Insti tute of Medic ine and an Endoc rine Socie ty pract ice guide line as a level of serum 25-OH vitam in D less than 20 ng/mL (1,2) . The Endoc rine Socie ty went on to [facility] er defin e vitam in D insuf ficie ncy as a level betwe en 21 and 29 ng/mL (2). 1. IOM (Inst itute of Medic ine). 2010. Diettess ry refer ence intak es for calci um and D. Deana cruz DC: [facility] . 2. Julio albright MF, Malu mas NC, Erika off-F kayli i ANGELES, et al. Evalu ation , treat ment, and preve ntion of vitam in D defic iency : an Endoc rine Socie ty clini bridgett pract ice guide line. JCEM. 2010; 96(7) :1911 -30. Not Available [facility] ([facility]) [address] [place], [address], 10/02/2021 08:24:13 10/02/19 22 10/02/2021 HEPAT IC FUNCT ION PANEL (7) protein, total 6.9 g/dL 6.0-8. 5 Not Available [facility] ([facility]) [address] [place], [address], 10/02/2021 08:24:12 10/02/19 22 10/02/2021 HEPAT IC FUNCT ION PANEL (7) albumin 4.6 g/dL 3.8-4. 9 Not Available [facility] ([facility]) [address] [place], [address], 10/02/2021 08:24:12 10/02/19 22 10/02/2021 HEPAT IC FUNCT ION PANEL (7) bilirubin, total 0.2 mg/dL 0.0-1. 2 Not Available [facility] ([facility]) [address] [place], [address], 10/02/2021 08:24:12 10/02/19 22 10/02/2021 HEPAT IC FUNCT ION PANEL (7) bilirubin, direct <0.10 mg/dL 0.00-0 .40 Not Available [facility] ([facility]) [address] [place], [address], 10/02/2021 08:24:12 10/02/19 22 10/02/2021 HEPAT IC FUNCT ION PANEL (7) alkaline phosphatase 88 IU/L 44-121 Not Available [facility] ([facility]) [address] [place], [address], 10/02/2021 08:24:12 10/02/19 22 10/02/2021 HEPAT IC FUNCT ION PANEL (7) AST (SGOT) 16 IU/L 0-40 Not Available [facility] ([facility]) [address] [place], [address], 10/02/2021 08:24:12 10/02/19 22 10/02/2021 HEPAT IC FUNCT ION PANEL (7) ALT (SGPT) 12 IU/L 0-32 Not Available [facility] ([facility]) [address] [place], [address], 10/02/2021 08:24:12 10/02/19 22 10/02/2021 LIPID PANEL cholesterol, total 276 mg/dL 100-19 9 above high normal Not Available [facility] ([facility]) [address] [place], [address], 10/02/2021 08:24:12 10/02/19 22 10/02/2021 LIPID PANEL triglyceride s 67 mg/dL 0-149 Not Available [facility] ([facility]) [address] [place], [address], 10/02/2021 08:24:12 10/02/19 22 10/02/2021 LIPID PANEL HDL cholesterol 71 mg/dL >39 Not Available [facility] ([facility]) [address] [place], [address], 10/02/2021 08:24:12 10/02/19 22 10/02/2021 LIPID PANEL VLDL cholesterol bridgett 10 mg/dL 5-40 Not Available [facility] ([facility]) [address] [place], [address], 10/02/2021 08:24:12 10/02/19 22 10/02/2021 LIPID PANEL LDL chol calc ([facility]) 195 mg/dL 0-99 above high normal Not Available [facility] ([facility]) [address] [place], [address], 10/02/2021 08:24:12 10/02/19 22 10/02/2021 LIPID PANEL comment: management professionals Not Available [facility] ([facility]) [address] [place], [address], 10/02/2021 08:24:12 10/02/19 22 10/02/2021 BASIC METAB OLIC PANEL (8) glucose 109 mg/dL 65-99 above high normal Not Available [facility] ([facility]) [address] [place], [address], 10/02/2021 08:24:11 10/02/19 22 10/02/2021 BASIC METAB OLIC PANEL (8) BUN 10 mg/dL 6-24 Not Available [facility] ([facility]) [address] [place], [address], 10/02/2021 08:24:11 10/02/19 22 10/02/2021 BASIC METAB OLIC PANEL (8) creatinine 0.76 mg/dL 0.57-1 .00 Not Available [facility] ([facility]) [address] [place], [address], 10/02/2021 08:24:11 10/02/19 22 10/02/2021 BASIC METAB OLIC PANEL (8) eGFR 90 mL/mi n/1.7 3 >59 Not Available [facility] ([facility]) [address] [place], [address], 10/02/2021 08:24:11 10/02/19 22 10/02/2021 BASIC METAB OLIC PANEL (8) BUN/creatini ne ratio 13 9-23 Not Available [facility] ([facility]) [address] [place], [address], 10/02/2021 08:24:11 10/02/19 22 10/02/2021 BASIC METAB OLIC PANEL (8) sodium 138 mmol/ L 134-14 4 Not Available [facility] ([facility]) [address] [place], [address], 10/02/2021 08:24:11 10/02/19 22 10/02/2021 BASIC METAB OLIC PANEL (8) potassium 4.7 mmol/ L 3.5-5. 2 Not Available [facility] ([facility]) [address] [place], [address], 10/02/2021 08:24:11 10/02/19 22 10/02/2021 BASIC METAB OLIC PANEL (8) chloride 99 mmol/ L 96-106 Not Available [facility] ([facility]) [address] [place], [address], 10/02/2021 08:24:11 10/02/19 22 10/02/2021 BASIC METAB OLIC PANEL (8) carbon dioxide, total 24 mmol/ L 20-29 Not Available [facility] ([facility]) [address] [place], [address], 10/02/2021 08:24:11 10/02/19 22 10/02/2021 BASIC METAB OLIC PANEL (8) calcium 10.1 mg/dL 8.7-10 .2 Not Available [facility] ([facility]) [address] [facility], [place], [address], 10/02/2021 08:24:11 10/02/19 22 10/02/2021 CBC/D IFF AMBIG UOUS DEFAU LT WBC 7.7 x10e3 /uL 3.4-10 .8 Not Available [facility] ([facility]) [address] [facility], [place], [address], 10/02/2021 08:24:11 10/02/19 22 10/02/2021 CBC/D IFF AMBIG UOUS DEFAU LT RBC 4.30 x10e6 /uL 3.77-5 .28 Not Available [facility] ([facility]) [address] [facility], [place], [address], 10/02/2021 08:24:11 10/02/19 22 10/02/2021 CBC/D IFF AMBIG UOUS DEFAU LT hemoglobin 13.5 g/dL 11.1-1 5.9 Not Available [facility] ([facility]) [address] [facility], [place], [address], 10/02/2021 08:24:11 10/02/19 22 10/02/2021 CBC/D IFF AMBIG UOUS DEFAU LT hematocrit 39.9 % 34.0-4 6.6 Not Available [facility] ([facility]) [address] [facility], [place], [address], 10/02/2021 08:24:11 10/02/19 22 10/02/2021 CBC/D IFF AMBIG UOUS DEFAU LT MCV 93 fL 79-97 Not Available [facility] ([facility]) [address] [facility], [place], [address], 10/02/2021 08:24:11 10/02/19 22 10/02/2021 CBC/D IFF AMBIG UOUS DEFAU LT MCH 31.4 pg 26.6-3 3.0 Not Available [facility] ([facility]) [address] [facility], [place], [address], 10/02/2021 08:24:11 10/02/19 22 10/02/2021 CBC/D IFF AMBIG UOUS DEFAU LT MCHC 33.8 g/dL 31.5-3 5.7 Not Available [facility] ([facility]) [address] [facility], [place], [address], 10/02/2021 08:24:11 10/02/19 22 10/02/2021 CBC/D IFF AMBIG UOUS DEFAU LT RDW 12.0 % 11.7-1 5.4 Not Available [facility] ([facility]) [address] [facility], [place], [address], 10/02/2021 08:24:11 10/02/19 22 10/02/2021 CBC/D IFF AMBIG UOUS DEFAU LT platelets 176 x10e3 /uL 150-45 0 Not Available [facility] ([facility]) [address] [place], [address], 10/02/2021 08:24:11 10/02/19 22 10/02/2021 CBC/D IFF AMBIG UOUS DEFAU LT neutrophils 57 % not estab. Not Available [facility] ([facility]) [address] [place], [address], 10/02/2021 08:24:11 10/02/19 22 10/02/2021 CBC/D IFF AMBIG UOUS DEFAU LT lymphs 35 % not estab. Not Available [facility] ([facility]) [address] [place], [address], 10/02/2021 08:24:11 10/02/19 22 10/02/2021 CBC/D IFF AMBIG UOUS DEFAU LT monocytes 7 % not estab. Not Available [facility] ([facility]) [address] [facility], [place], [address], 10/02/2021 08:24:11 10/02/19 22 10/02/2021 CBC/D IFF AMBIG UOUS DEFAU LT eos 0 % not estab. Not Available [facility] ([facility]) [address] [facility], [place], [address], 10/02/2021 08:24:11 10/02/19 22 10/02/2021 CBC/D IFF AMBIG UOUS DEFAU LT basos 1 % not estab. Not Available [facility] ([facility]) [address] [facility], [place], [address], 10/02/2021 08:24:11 10/02/19 22 10/02/2021 CBC/D IFF AMBIG UOUS DEFAU LT immature cells management professionals Not Available [facility] ([facility]) [address] [place], [address], 10/02/2021 08:24:11 10/02/19 22 10/02/2021 CBC/D IFF AMBIG UOUS DEFAU LT neutrophils (absolute) 4.4 x10e3 /uL 1.4-7. 0 Not Available [facility] ([facility]) [address] [place], [address], 10/02/2021 08:24:11 10/02/19 22 10/02/2021 CBC/D IFF AMBIG UOUS DEFAU LT lymphs (absolute) 2.7 x10e3 /uL 0.7-3. 1 Not Available [facility] ([facility]) [address] [place], [address], 10/02/2021 08:24:11 10/02/19 22 10/02/2021 CBC/D IFF AMBIG UOUS DEFAU LT monocytes(ab solute) 0.5 x10e3 /uL 0.1-0. 9 Not Available [facility] ([facility]) [address] [facility], [place], [address], 10/02/2021 08:24:11 10/02/19 22 10/02/2021 CBC/D IFF AMBIG UOUS DEFAU LT eos (absolute) 0.0 x10e3 /uL 0.0-0. 4 Not Available [facility] ([facility]) [address] [facility], [place], [address], 10/02/2021 08:24:11 10/02/19 22 10/02/2021 CBC/D IFF AMBIG UOUS DEFAU LT baso (absolute) 0.0 x10e3 /uL 0.0-0. 2 Not Available [facility] ([facility]) [address] [facility], [place], [address], 10/02/2021 08:24:11 10/02/19 22 10/02/2021 CBC/D IFF AMBIG UOUS DEFAU LT immature granulocytes 0 % not estab. Not Available [facility] ([facility]) [address] [facility], [place], [address], 10/02/2021 08:24:11 10/02/19 22 10/02/2021 CBC/D IFF AMBIG UOUS DEFAU LT immature grans (abs) 0.0 x10e3 /uL 0.0-0. 1 Not Available [facility] ([facility]) [address] [facility], [place], [address], 10/02/2021 08:24:11 10/02/19 22 10/02/2021 CBC/D IFF AMBIG UOUS DEFAU LT NRBC management professionals Not Available [facility] ([facility]) [address] [facility], [place], [address], 10/02/2021 08:24:11 10/02/1910/02/2021 CBC/D IFF JANES JUARES DEFAU LT hematology comments: management professionals A hand- writt en panel /prof jeffers was recei david from your offic e. In accor dance with the [facility] Janes juares Test Code Polic y dated September 2002, we have assig allie CBC with Diffe renti al/Pl atele t, Test Code #[address]. If this is not the testi ng you wishe d to recei ve on this speci men, pleas e conta ct the [facility] Clien t Inqui ry/ Techn ical Servi daquan Depar tment to augie fy the test order . We appre ciate your busin ess. Not Available [facility] ([facility]) [address] [place], [address], 10/02/2021 08:24:11 06/10/19 23 06/10/2022 CBC WITH DIFFE RENTI AL/PL ATELE T WBC 7.5 x10e3 /uL 3.4-10 .8 Not Available [facility] ([facility]) [address] [place], [address], 06/10/2022 11:37:55 06/10/19 23 06/10/2022 CBC WITH DIFFE RENTI AL/PL ATELE T RBC 4.41 x10e6 /uL 3.77-5 .28 Not Available [facility] ([facility]) [address] [place], [address], 06/10/2022 11:37:55 06/10/19 23 06/10/2022 CBC WITH DIFFE RENTI AL/PL ATELE T hemoglobin 13.6 g/dL 11.1-1 5.9 Not Available [facility] ([facility]) [address] [place], [address], 06/10/2022 11:37:55 06/10/19 23 06/10/2022 CBC WITH DIFFE RENTI AL/PL ATELE T hematocrit 40.7 % 34.0-4 6.6 Not Available [facility] ([facility]) [address] [facility], [place], [address], 06/10/2022 11:37:55 06/10/19 23 06/10/2022 CBC WITH DIFFE RENTI AL/PL ATELE T MCV 92 fL 79-97 Not Available [facility] ([facility]) [address] [facility], [place], [address], 06/10/2022 11:37:55 06/10/19 23 06/10/2022 CBC WITH DIFFE RENTI AL/PL ATELE T MCH 30.8 pg 26.6-3 3.0 Not Available [facility] ([facility]) [address] [facility], [place], [address], 06/10/2022 11:37:55 06/10/19 23 06/10/2022 CBC WITH DIFFE RENTI AL/PL ATELE T MCHC 33.4 g/dL 31.5-3 5.7 Not Available [facility] ([facility]) [address] [facility], [place], [address], 06/10/2022 11:37:55 06/10/19 23 06/10/2022 CBC WITH DIFFE RENTI AL/PL ATELE T RDW 12.1 % 11.7-1 5.4 Not Available [facility] ([facility]) [address] [facility], [place], [address], 06/10/2022 11:37:55 06/10/19 23 06/10/2022 CBC WITH DIFFE RENTI AL/PL ATELE T platelets 184 x10e3 /uL 150-45 0 Not Available [facility] ([facility]) [address] [place], [address], 06/10/2022 11:37:55 06/10/19 23 06/10/2022 CBC WITH DIFFE RENTI AL/PL ATELE T neutrophils 66 % not estab. Not Available [facility] ([facility]) [address] [facility], [place], [address], 06/10/2022 11:37:55 06/10/19 23 06/10/2022 CBC WITH DIFFE RENTI AL/PL ATELE T lymphs 22 % not estab. Not Available [facility] ([facility]) [address] [facility], [place], [address], 06/10/2022 11:37:55 06/10/19 23 06/10/2022 CBC WITH DIFFE RENTI AL/PL ATELE T monocytes 11 % not estab. Not Available [facility] ([facility]) [address] [facility], [place], [address], 06/10/2022 11:37:55 06/10/19 23 06/10/2022 CBC WITH DIFFE RENTI AL/PL ATELE T eos 0 % not estab. Not Available [facility] ([facility]) [address] [facility], [place], [address], 06/10/2022 11:37:55 06/10/19 23 06/10/2022 CBC WITH DIFFE RENTI AL/PL ATELE T basos 1 % not estab. Not Available [facility] ([facility]) [address] [facility], [place], [address], 06/10/2022 11:37:55 06/10/19 23 06/10/2022 CBC WITH DIFFE RENTI AL/PL ATELE T immature cells MECHANICAL SHOVEL OPERATOR Not Available [facility] ([facility]) [address] [facility], [place], [address], 06/10/2022 11:37:55 06/10/19 23 06/10/2022 CBC WITH DIFFE RENTI AL/PL ATELE T neutrophils (absolute) 5.0 x10e3 /uL 1.4-7. 0 Not Available [facility] ([facility]) [address] [facility], [place], [address], 06/10/2022 11:37:55 06/10/19 23 06/10/2022 CBC WITH DIFFE RENTI AL/PL ATELE T lymphs (absolute) 1.6 x10e3 /uL 0.7-3. 1 Not Available [facility] ([facility]) [address] [facility], [place], [address], 06/10/2022 11:37:55 06/10/19 23 06/10/2022 CBC WITH DIFFE RENTI AL/PL ATELE T monocytes(ab solute) 0.8 x10e3 /uL 0.1-0. 9 Not Available [facility] ([facility]) [address] [facility], [place], [address], 06/10/2022 11:37:55 06/10/19 23 06/10/2022 CBC WITH DIFFE RENTI AL/PL ATELE T eos (absolute) 0.0 x10e3 /uL 0.0-0. 4 Not Available [facility] ([facility]) [address] [facility], [place], [address], 06/10/2022 11:37:55 06/10/19 23 06/10/2022 CBC WITH DIFFE RENTI AL/PL ATELE T baso (absolute) 0.0 x10e3 /uL 0.0-0. 2 Not Available [facility] ([facility]) [address] [facility], [place], [address], 06/10/2022 11:37:55 06/10/19 23 06/10/2022 CBC WITH DIFFE RENTI AL/PL ATELE T immature granulocytes 0 % not estab. Not Available [facility] ([facility]) [address] [facility], [place], [address], 06/10/2022 11:37:55 06/10/19 23 06/10/2022 CBC WITH DIFFE RENTI AL/PL ATELE T immature grans (abs) 0.0 x10e3 /uL 0.0-0. 1 Not Available [facility] ([facility]) [address], [place], [address], 06/10/2022 11:37:55 06/10/19 23 06/10/2022 CBC WITH DIFFE RENTI AL/PL ATELE T NRBC MECHANICAL SHOVEL OPERATOR Not Available [facility] ([facility]) [address], [place], [address], 06/10/2022 11:37:55 06/10/19 23 06/10/2022 CBC WITH DIFFE RENTI AL/PL ATELE T hematology comments: MECHANICAL SHOVEL OPERATOR Not Available [facility] ([facility]) [address], [place], [address], 06/10/2022 11:37:55 06/10/19 23 06/10/2022 BASIC METAB OLIC PANEL (8) glucose 107 mg/dL 70-99 above high normal Not Available [facility] ([facility]) [address] [facility], [place], [address], 06/10/2022 11:37:56 06/10/19 23 06/10/2022 BASIC METAB OLIC PANEL (8) BUN 9 mg/dL 8-27 Not Available [facility] ([facility]) [address] [facility], [place], [address], 06/10/2022 11:37:56 06/10/19 23 06/10/2022 BASIC METAB OLIC PANEL (8) creatinine 0.79 mg/dL 0.57-1 .00 Not Available [facility] ([facility]) [address] [facility], [place], [address], 06/10/2022 11:37:56 06/10/19 23 06/10/2022 BASIC METAB OLIC PANEL (8) eGFR 86 mL/mi n/1.7 3 >59 Not Available [facility] ([facility]) [address] [facility], [place], [address], 06/10/2022 11:37:56 06/10/19 23 06/10/2022 BASIC METAB OLIC PANEL (8) BUN/creatini ne ratio 11 12-28 below low normal Not Available [facility] ([facility]) [address] [place], [address], 06/10/2022 11:37:56 06/10/19 23 06/10/2022 BASIC METAB OLIC PANEL (8) sodium 141 mmol/ L 134-14 4 Not Available [facility] ([facility]) [address] [place], [address], 06/10/2022 11:37:56 06/10/19 23 06/10/2022 BASIC METAB OLIC PANEL (8) potassium 4.1 mmol/ L 3.5-5. 2 Not Available [facility] ([facility]) [address] [place], [address], 06/10/2022 11:37:56 06/10/19 23 06/10/2022 BASIC METAB OLIC PANEL (8) chloride 100 mmol/ L 96-106 Not Available [facility] ([facility]) [address] [place], [address], 06/10/2022 11:37:56 06/10/19 23 06/10/2022 BASIC METAB OLIC PANEL (8) carbon dioxide, total 26 mmol/ L 20-29 Not Available [facility] ([facility]) [address] [place], [address], 06/10/2022 11:37:56 06/10/19 23 06/10/2022 BASIC METAB OLIC PANEL (8) calcium 9.2 mg/dL 8.7-10 .3 Not Available [facility] ([facility]) [address] [place], [address], 06/10/2022 11:37:56 06/10/19 23 06/10/2022 LIPID PANEL cholesterol, total 237 mg/dL 100-19 9 above high normal Not Available [facility] ([facility]) [address] [place], [address], 06/10/2022 11:37:57 06/10/19 23 06/10/2022 LIPID PANEL triglyceride s 64 mg/dL 0-149 Not Available [facility] ([facility]) [address] [place], [address], 06/10/2022 11:37:57 06/10/19 23 06/10/2022 LIPID PANEL HDL cholesterol 75 mg/dL >39 Not Available [facility] ([facility]) [address] [place], [address], 06/10/2022 11:37:57 06/10/19 23 06/10/2022 LIPID PANEL VLDL cholesterol bridgett 11 mg/dL 5-40 Not Available [facility] ([facility]) [address] [place], [address], 06/10/2022 11:37:57 06/10/19 23 06/10/2022 LIPID PANEL LDL chol calc ([facility]) 151 mg/dL 0-99 above high normal Not Available [facility] ([facility]) [address] [place], [address], 06/10/2022 11:37:57 06/10/19 23 06/10/2022 LIPID PANEL comment: MECHANICAL SHOVEL OPERATOR Not Available [facility] ([facility]) [address] [place], [address], 06/10/2022 11:37:57 06/10/19 23 06/10/2022 HEPAT IC FUNCT ION PANEL (7) protein, total 6.7 g/dL 6.0-8. 5 Not Available [facility] ([facility]) [address] [place], [address], 06/10/2022 11:37:57 06/10/19 23 06/10/2022 HEPAT IC FUNCT ION PANEL (7) albumin 4.6 g/dL 3.8-4. 9 Not Available [facility] ([facility]) [address] [facility], [place], [address], 06/10/2022 11:37:57 06/10/19 23 06/10/2022 HEPAT IC FUNCT ION PANEL (7) bilirubin, total 0.3 mg/dL 0.0-1. 2 Not Available [facility] ([facility]) [address] [place], [address], 06/10/2022 11:37:57 06/10/19 23 06/10/2022 HEPAT IC FUNCT ION PANEL (7) bilirubin, direct <0.10 mg/dL 0.00-0 .40 Not Available [facility] ([facility]) [address] [facility], [place], [address], 06/10/2022 11:37:57 06/10/19 23 06/10/2022 HEPAT IC FUNCT ION PANEL (7) alkaline phosphatase 84 IU/L 44-121 Not Available [facility]) [address] [place], [address], 06/10/2022 11:37:57 06/10/19 23 06/10/2022 HEPAT IC FUNCT ION PANEL (7) AST (SGOT) 16 IU/L 0-40 Not Available [facility] ([facility]) [address] [place], [address], 06/10/2022 11:37:57 06/10/19 23 06/10/2022 HEPAT IC FUNCT ION PANEL (7) ALT (SGPT) 14 IU/L 0-32 Not Available [facility] ([facility]) [address] [place], [address], 06/10/2022 11:37:57 06/10/19 23 06/10/2022 VITAM IN D, 25-HY DROXY vitamin D, 25-hydroxy 112.0 NG/mL 30.0-1 00.0 above high normal Vitam in D defic iency has been defin ed by the Insti tute of Medic ine and an Endoc rine Socie ty pract ice guide line as a level of serum 25-OH vitam in D less than 20 ng/mL (1,2) . The Endoc rine Socie ty went on to furth er defin e vitam in D insuf ficie ncy as a level betwe en 21 and 29 ng/mL (2). 1. IOM (Inst itute of Medic ine). 2010. Dieta ry refer ence intak es for calci um and D. Deana cruz DC: The [facility] Press . 2. Julio albright MF, Malu mas [place], Erika off-F kayli i ANGELES, et al. Evalu ation , treat ment, and preve ntion of vitam in D defic iency : an Endoc rine Socie ty clini bridgett pract ice guide line. JCEM. 2010; 96(7) :1911 -30. Not Available Not Available 06/10/2022 11:37:58 06/10/19 23 06/09/2022 rapid strep group A, throa t STREP A negati ve Not Available [facility] [address], [place], [address], 06/09/2022 10:26:26 01/22/20 23 01/22/2023 LIPID PANEL cholesterol, total 266 mg/dL 100-19 9 above high normal Not Available [facility] ([facility]) [address] [place], [address], 01/22/2023 08:26:16 01/22/20 23 01/22/2023 LIPID PANEL triglyceride s 80 mg/dL 0-149 Not Available [facility] ([facility]) [address] [place], [address], 01/22/2023 08:26:16 01/22/20 23 01/22/2023 LIPID PANEL HDL cholesterol 74 mg/dL >39 Not Available [facility] ([facility]) [address] [place], [address], 01/22/2023 08:26:16 01/22/20 23 01/22/2023 LIPID PANEL VLDL cholesterol bridgett 13 mg/dL 5-40 Not Available [facility] ([facility]) [address] [facility], [place], [address], 01/22/2023 08:26:16 01/22/20 23 01/22/2023 LIPID PANEL LDL chol calc ([facility]) 179 mg/dL 0-99 above high normal Not Available [facility] ([facility]) [address] [facility] [facility], [place], [address], 01/22/2023 08:26:16 01/22/20 23 01/22/2023 LIPID PANEL comment: MECH[employer]OVEL OPERATOR Not Available [facility] ([facility]) [address] [facility], [place], [address], 01/22/2023 08:26:16 09/13/19 22 01/15/2017 MAMMO , yeyo cox, digit al, bilat eral No observ ation record ed. [id number] [facility] [address] [place], [address] 05/21/2022 01:00:45 12/20/19 22 12/19/2021 imagi ng/di agnos tic resul t No observ ation record ed. [id number] [facility] [address], [place], [address], 05/21/2022 01:00:45 01/15/20 22 01/14/2022 DEXA No observ ation record ed. MIGRATION. [facility] [address], [place], [address], 05/21/2022 01:00:45 01/28/20 22 01/26/2022 LDCT, chest , for lung cance r yeyo cox No observ ation record ed. MIGRATION. [facility] [address], [place], [address], 05/21/2022 01:00:45 Result Notes None recorded. Problems Name Problem SNOMED Code Status Onset Date Resolution Date Notes Provider Name and Address Organization Details Recorded Time Degeneration of lumbar intervertebr al disc 87820119 Active 2021 Not Available [facility] 3 00:59:18 Osteopenia 383012108 Active 2021 DEXA 12/2021 Not Available [facility] 3 00:59:18 Major depressive disorder 989697866 Active 2021 Not Available [facility] 3 00:59:18 Migraine 67698020 Active 2021 Hormona l, has them rarely now Not Available [facility] 3 00:59:18 Hyperlipidem ia 54184029 Active 2021 Not Available [facility] 3 00:59:19 Alcoholism 4904344 Active 2021 Not Available [facility] 3 00:59:19 Fever 286673220 Active 2022 Aleja Mercer MD [address], [place], [address] , Managed by Q 3 10:26:11 Vitamin D deficiency 62773995 Active 2022 Aleja Mercer MD [address], [address], [place], [address] , Managed by Q 3 10:28:21 Degeneration of intervertebr al disc 75142951 Active 2022 JAMAR Mccoy [address], [address], [place], [address] , Managed by Q 3 17:39:42 Oral herpes simplex infection 749820407 Active 2022 HEATHER Dickerson [address], [address], [place], [address] , Managed by Q 3 17:44:39 Herpes labialis 8672563 Active 2022 Aleja Mercer MD [address], [address], [place], [address] , [employer] 3 12:43:44 Spasm 10963026 Active 2022 Aleja Mercer MD [address], [place], [address] , [employer] 3 18:26:14 Low back pain 257256678 Active 2023 Aleja Mercer MD [address], [place], [address] , [employer] 4 16:18:03 Notes:history of drug abuse Problem Notes None recorded. Procedures Surgical History Date Name Laterality Status Provider Name and Address Organization Details Recorded Time total hysterectomy with removal of both tubes and ovaries completed Not Available [facility] 3 00:58:17 Imaging Results Imaging Date Name Status LastModified by Organiz ation Details LastModified Time 01/26/2022 LDCT, chest, for lung cancer screening completed [id number] [facility] [address], [place], [address], 05/21/2022 01:00:45 01/14/2022 DEXA completed [id number] 026 [facility] [address], [place], [address], 05/21/2022 01:00:45 01/15/2017 MAMMO, screening, digital, bilateral completed [id number] [address] [place] [address], [address] 05/21/2022 01:00:45 12/19/2021 imaging/diagno stic result completed [id number] [address] [place] [address] [address], [place], [address], 05/21/2022 01:00:45 Procedure Notes None recorded. Medical Equipment None Reported. Allergies No known drug allergies Medications Name Sig Start Date Stop Date Status Note LastModified by Organization Details LastModified Time lamotrigine 150 mg tablet TAKE 1 TABLET BY MOUTH EVERY NIGHT AT BEDTIME active Not Available Not Available No t Available trazodone 50 mg tablet 4 at bedtime active Not Available Not Available No t Available atorvastati n 10 mg tablet 1 po qhs 01/21 completed Not Available Not Available Not Available ibuprofen 800 mg tablet TAKE 1 TABLET BY MOUTH THREE TIMES DAILY active Not Available Not Available No t Available valacyclovi r 1 gram tablet Take 2 tablets every 12 hours by oral route for 1 day. 01/21 completed Not Available Not Available Not Available sumatriptan 100 mg tablet Take by oral route. 2021 active Not Available Not Available Not Avai lable hydrocodone 5 mg-acetamin ophen 325 mg tablet TAKE 1 TO 2 TABLETS BY MOUTH EVERY 6 HOURS NEEDED FOR PAIN 01/21 completed Not Available Not Available Not Available acyclovir 400 mg tablet TAKE 1 TABLET BY MOUTH EVERY 8 HOURS FOR 10 DAYS 01/21 completed Not Available Not Available Not Available tramadol 50 mg tablet TAKE 1 TABLET BY MOUTH TWICE DAILY NEEDED active Not Available Not Available No t Available ketorolac 30 mg/mL (1 mL) injection solution Inject 2 mL every 6 hours by intramusc ular route. 2023 active Not Available Not Available Not Avai lable amoxicillin 875 mg tablet TAKE 1 TABLET BY MOUTH TWICE DAILY 01/21 completed Not Available Not Available Not Available hydroxyzine HCl 10 mg tablet TAKE 1 TO 2 TABLETS BY MOUTH EVERY DAY NEEDED FOR ANXIETY active Not Available Not Available No t Available ezetimibe 10 mg tablet TAKE 1 TABLET BY MOUTH EVERY DAY 01/21 completed Not Available Not Available Not Available cyclobenzap rine 5 mg tablet TAKE 1 TABLET BY MOUTH TWICE DAILY NEEDED active Not Available Not Available No t Available duloxetine 60 mg capsule,del ayed release 1 po qday active Not Available Not Available No t Available Vitals Date Recorded Body mass index (BMI) Body height Oxygen saturation Oxygen saturation in Arterial blood by Pulse oximetry Heart rate Body temperature Body weight Systolic blood pressure Diastolic blood pressure Provider Name and Address Organization Details Last Updated DateTime 2 21.1 kg/m2 170.18 cm 96 % 96 % 88 /min 97.4 [degF] 06479.9 7 g 128 mm[Hg] 80 mm[Hg] Not Available [facility] 3 00:58:42 Date Recorded Body height Oxygen saturation Oxygen saturation in Arterial blood by Pulse oximetry Heart rate Body temperature Systolic blood pressure Diastolic blood pressure Provider Name and Address Organization Details Last Updated DateTime 2 170.18 cm 98 % 98 % 95 /min 97.7 [degF] 110 mm[Hg] 70 mm[Hg] Not Available [facility] 3 00:58:42 Date Recorded Body height Body mass index (BMI) Body weight Body temperature Heart rate Oxygen saturation Oxygen saturation in Arterial blood by Pulse oximetry Systolic blood pressure Diastolic blood pressure Provider Name and Address Organization Details Last Updated DateTime 3 170.18 cm 21.3 kg/m2 35285.5 6 g 98.2 [degF] 103 /min 99 % 99 % 122 mm[Hg] 76 mm[Hg] Miranda Littlejohn [facility] [employer] [facility] [employer] 3 10:20:57 Date Recorded Body height Body mass index (BMI) Body weight Body temperature Heart rate Oxygen saturation Oxygen saturation in Arterial blood by Pulse oximetry Systolic blood pressure Diastolic blood pressure Provider Name and Address Organization Details Last Updated DateTime 3 170.18 cm 21 kg/m2 16090.3 8 g 97.8 [degF] 102 /min 98 % 98 % 148 mm[Hg] 92 mm[Hg] Irma Doe RN [facility] [employer] 3 10:44:35 Date Recorded Body height Provider Name an Address Organization Details Last Updated DateTime 03/30/2023 170.18 cm Madison Solorzano [facility] [employer] 03/30/2023 11:31:15 Social History Question Answer Notes LastModified by Organizat ion Details LastModified Time Tobacco Smoking Status Current Every Day Smoker 1 pack per day starting smoking age 16 Not Available [facility] 05/21/2022 00:57:51 What Type Of Diet Are You Following? REGULAR [id number] Information not available 05/21/2022 What Was The Date Of Your Most Recent Tobacco Screening? 09/09/2021 [id number] Information not available 05/21/2022 Sex: Unknown Functional Status None recorded. Mental Status None recorded. Family History Relationship Description Onset Age of this Age Resolved Age Notes LastModified by Organization Details LastModified Time Father Amyotrophic lateral sclerosis [id number] Not available 05/21/2022 00:58:18 Mother No current problems or disability [id number] Not available 05/21/2022 00:58:18 Maternal Aunt Malignant tumor of breast [id number] Not available 05/21/2022 00:58:19 Medical History No medical history recorded. Gynecological HistoryNo gynecological history recorded. Obstetrics History GPAL:G 0 P 0 0 0 0 Immunizations Vaccine Type Date Status Note Provider Nam e and Address Organization Details Recorded Time COVID-19, mRNA, LNP-S, PF, 100 mcg/0.5mL dose or 50 mcg/0.25mL dose 02/19/2021 completed Not Available [facility] 3 01:00:33 COVID-19, mRNA, LNP-S, PF, 100 mcg/0.5mL dose or 50 mcg/0.25mL dose 04/22/2020 completed Not Available [facility] 3 01:00:33 Influenza, split virus, quadrivalent, PF 12/10/2021 completed Not Available [facility] 3 01:00:33 Influenza, split virus, quadrivalent, PF 01/21/2023 completed Aleja Mercer MD [address] [place] [address], [address], [facility] [employer] [facility] 01/21/2023 11:42:14 Past Encounters Encounter ID Performer Location Encounter Start Date Encounter Closed Date Diagnosis/Indication Diagnosis SNOMED-CT Code Diagnosis ICD10 Code Diagnosis Note [id number] S[facility] Primary Care [facility] [place] [address] [place] [address] 09/09/2021 00:00:00 09/09/2021 15:10:17 [id number] [facility] [address] [place] [address] 12/10/2021 00:00:00 12/10/2021 10:39:41 [id number] Aleja Mercer MD [facility] Primary Care [facility] [address] [place] [address] 06/09/2022 10:10:55 06/09/2022 11:24:09 Fever 175773050 R50.9 rapid flu negativera pid strep negativeco ntinue supportive careout of work until fever free 48 hourscall/ return if no improvemen t in 1-2 days or sooner if neededrevi ewed s/s that warrant urgent/west rgent eval in meantime Vitamin D deficiency 347 17698 E55.9 Hyperlipidemia 28189014 E78.5 Z79.899 does not wish to be on statin or zetia due to weight gaincontin ue otc fish oilcheck labs [id number] Aleja Mercer MD [facility] Primary Care [facility] [address] [facility] [address] [place] [address] 01/21/2023 10:08:08 01/21/2023 11:16:04 Hyperlipidemia 54200911 E78.5 Z79.899 does not wish to be on statin or zetia due to weight gaincontin ue otc fish oilcheck labs, if stable repeat in 1 year Administra tion of influenza vaccine 92051203 Z23 [id number] Aleja Mercer MD [facility] Primary Care [facility] [address] [place] [address] 03/30/2023 10:54:26 03/30/2023 12:03:00 Health Concerns Section Related Observation LastModified by Organization Detai ls LastModified Time None Recorded Concern Status LastModified by Organization Details LastModified Time None Recorded Advance Directives Directive None Recorded Payers Encounter Date Sequence Insurance Name Policy Number Policy Gibbons Covered Member ID Gibbons Member ID Guarantor Name 06/09/2022 1 [facility] [id number] Marie Tess Rivera [id number] Marie Tess Rivera 01/21/2023 1 [facility] [id number] Marie Rivera [id number] Marie Rivera 03/30/2023 1 [facility] [id number] Marie Rivera [id number] Marie Tess Rivera Notes Date Note Type Note Provider Name and Address Organization Details Recorded Time 06/09/2022 text/html here to f/u, she d/c her cholesterol medication due to weight gain. She is wondering about her other options. She is feeling sick since Wednesday-started with headache, sore throat, cough, rhinorrhea, body aches. Yesterday did feel very ill, today feels a bit better. No home covid test. She did have fever 101 yesterday. No n/v, no d/c. She is taking fran seltzer cold plus, she is staying well hydrated. Aleja Mercer MD [address] [facility] [address] [facility] [facility] [address], [place], [address], [employer] 06/09/2022 11:08:02 01/21/2023 text/html here to f/u, she d/c her cholesterol medication due to weight gain. She is wondering about her other options. She is feeling sick since Wednesday-started with headache, sore throat, cough, rhinorrhea, body aches. Yesterday did feel very ill, today feels a bit better. No home covid test. She did have fever 101 yesterday. No n/v, no d/c. She is taking fran seltzer cold plus, she is staying well hydrated. update 01/21/23: Here to f/u on hyperlipidemia. She is feeling well off zetia and statin. She has lost 2 pounds. No chest pain or sob. Aleja Mercer MD [address] [facility], [place], [address], [employer] 01/21/2023 11:42:29 OBGyn Episode No OBEpisode recorded.
--- OUTSIDE RECORDS SUMMARY | 2024-07-12 13:22 | XMS_ITS | Encounter Summary ---
Author Organization [facility] Address [address] [place] [address] Care Team Providers Care Manager Action Name Role Phone Cruz Stewart MD Primary Care Provider [phone] Encounter Details Date Type Department Care Team (Latest Contact Info) Description 01/03/2001 Outpatient Historical [facility] PAMELA Meehan, Ruperto Underwood MD [address] [place] [address] [place] [address] Nausea with vomiting (Primary Dx) Social History Tobacco Use Types Packs/Day Years Used Date Smoking Tobacco: Never Assessed Comments Unknown Sex and Gender Information Value Date Recorded Sex Assigned at Not on file 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
--- OUTSIDE RECORDS SUMMARY | 2024-07-12 13:22 | XMS_ITS | Encounter Summary ---
Author Organization [facility] Address [address] [place] [address] Care Team Providers Care Cut Out Worker Name Role Phone Ventura Stewart MD Primary Care Provider [phone] Encounter Details Date Type Department Care Team (Late st Contact Info) Description 11/13/2019 Telephone [facility] [address] [facility] [address] [place] [address] Radha Hubbard MD PhD [address] [facility] [address] [facility] [phone] [place], [place] [id number] Social History Tobacco Use Types Packs/Day Years Used Date Smoking Tobacco: Smoker, Current Status Unknown Cigarettes 1 40 Smokeless Tobacco: Never Alcohol Use Standard Drinks/Week Comments Yes 0 (1 standard drink = 0.6 oz pur e alcohol) Recovering alcoholic Comments No Sex and Gender Information Value Date Recorded Sex Assigned at Not on file 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 Author CCM Chronic Pain Care Plan Chronic Care Management No change(06/20 2:47 PM CDT) Corin Ayala, RN Note: Problem: Chronic Pain Goals: 1. [...] lighting, especially on stairs Contact your local [facility] for information on exercise, fall prevention programs, or options for improving home safety. Reduce the likelihood of falling Lifestyle No Maru Pena Note: Below are four things you can [...] lighting, especially on stairs Contact your local [facility] or [facility] for information on exercise, fall prevention programs, or options for improving home safety. documented as of this encounter Visit Diagnoses Not on filedocumented in this encounter Additional Health Concerns Infection Onset Date Last Indicated Resolved Time COVID: Suspected 11/06/2020 11/06/2020 11/06/2020 6:03 PM CDT documented as of this encounter Care Teams Cut Out Worker Relationship Specialty Start Date End Date Ventura Stewart MD [address] [place] [address] PCP - General 06/30/16 documented as of this encounter
--- OUTSIDE RECORDS SUMMARY | 2024-07-12 13:22 | XMS_ITS | Patient Health Record ---
Author Organization [facility] [employer] [facility] Address [address] [place] [address] Care Team Providers Care Sheet Metal Lay Out Worker Name Role Phone Angelita Garcia DO Primary Care Provider Unavailab Sofi Avendano Unavailable [phone] Migration, Provider Unavailable Unavailable Allergies No Known Allergies Reason For Referral No Information Medications Medication SIG (Take, Route, Frequency, Duration) Notes Start Date End Date Status hydrOXYzine HCl 10 MG 1 tablet as needed Oral Once a day for 90 days Active lamoTRIgine 200 MG 1 tablet Orally Once a day for 90 days Active traZODone HCl 100 MG 2 tablet at bedtime Oral Once a day for 90 days Active traZODone HCl 100 MG 2 tablet at bedtime Oral Once a day for 90 days As needed Active DULoxetine HCl 60 MG 1 capsule Oral Once a day for 90 days Active traMADol HCl 50 MG Oral 06/09/2023 Active hydrOXYzine HCl 10 MG 1 tablet as needed Oral Once a day for 90 days Active Cyclobenzaprine HCl 5 MG Oral 06/09/2023 Active Rosuvastatin Calcium 10 MG 1 tablet Oral ly Once a day Active Ezetimibe 10 MG Oral 06/09/2023 Act marc Social History Tobacco Use: Social History Observation Description Date Details (start date - stop date) Current Smoker NA - NA Sex Assigned At : Social History Observation Description Sex Assigned At Female Household Question Answer Notes Marital status: Tobacco Control (Standard) Question Answer Notes Tobacco use: Current smoker How often do you smoke cigarettes? Every day How many cigarettes a day do you smoke? 11-20 How soon after you wake up d o you smoke your first cigarette? Within 5 minutes Are you interested in quitting? Thinking about q uitting Problems Problem Type SNOMED Code ICD Code Onset Dates Problem Status W/U Status Risk Notes Problem Chronic alcoholism in remission (750019904) Alcohol dependence, in remission (F10.21) Active confirmed Problem Recurrent major depression (34124233) Major depressive disorder, recurrent, in remission, unspecified (F33.40) Active confirmed Problem Generalized anxiety disorder (64013431) Generalized anxiety disorder (F41.1) Active confirmed Problem 24787229 Bipolar disorder in remission (F31.70) Active confirmed Vital Signs Heart Rate 97 /min 06/02/2024 Height-cm 170.18 cm 06/02/2024 Blood pressure diastolic 84 mm Hg 06/02/2024 Weight-kg 61.24 kg 06/02/2024 Height 67.00 in 06/02/2024 Blood pressure systolic 140 mm Hg 06/02/2024 Weight 135 lbs 06/02/2024 BMI 21.14 kg/m2 06/02/2024 Encounters Encounter Location Date Provider Diagnosis [address] [address] 12/10/2023 Sofi Jimenez Major depressive disorder, recurrent, in remission, unspecified F33.40 ; Generalized anxiety disorder F41.1 and Alcohol dependence, in remission F10.[address] [address] 06/02/2024 Sofi Jimenez Generalized anxiety disorder F41.1 ; Bipolar disorder in remission F31.70 ; Alcohol dependence, in remission F10.21 ; Encounter for screening for depression Z13.31 ; Encounter for screening for cardiovascular disorders Z13.6 and Nicotine use Z72.[address] [address] 08/07/2023 Provider Migration [address] [address] 08/08/2023 Provider Migration [address] [address] 11/12/2023 Sofi Jimenez [address] [address] 05/30/2024 Sofi Jimenez [address] [address] 11/12/2023 Sofi Jimenez Assessments Encounter Date Diagnosis (ICD Code) Assessment Notes Treatment Notes Treatment Clinical Notes Section Notes 12/10/2023 Major depressive disorder, recurrent, in remission, unspecified (ICD-10 - F33.40) Lamotrigine is an anticonvulsant and mood stabilizer used in psychiatry. Lamotrigine use is associated with benign rashes (incidence approximately 10%) and rare serious rashes that may require hospitalization and discontinuation of treatment, including Baugh-Nader syndrome and toxic epidermal necrolysis. Pt educated on importance of titration schedule and to take the medication only as prescribed. Pt educated that if they miss 5 or more consecutive doses then this medication will need to be re-titrated to reduce risk of rash. If any rash is noted, patient is instructed to stop taking this medication and call office. If rash is severe, they are to present immediately to the emergency room. 12/10/2023 Generalized anxiety disorder (ICD-10 - F41.1) 06/02/2024 Generalized anxiety disorder (ICD-10 - F41.1) 06/02/2024 Bipolar disorder in remission (ICD-10 - F31.70) SSRI/SNRI side effects discussed including but not limited to, gastric upset, nausea, vomiting, diarrhea and/or constipation, weight changes, sexual side effects including loss of libido, increased suicidal thoughts/behaviors in children and young adults, and serotonin syndrome. Lamotrigine is an anticonvulsant and mood stabilizer used in psychiatry. Lamotrigine use is associated with benign rashes (incidence approximately 10%) and rare serious rashes that may require hospitalization and discontinuation of treatment, including Baugh-Nader syndrome and toxic epidermal necrolysis. Pt educated on importance of titration schedule and to take the medication only as prescribed. Pt educated that if they miss 5 or more consecutive doses then this medication will need to be re-titrated to reduce risk of rash. If any rash is noted, patient is instructed to stop taking this medication and call office. If rash is severe, they are to present immediately to the emergency room. 12/10/2023 Alcohol dependence, in remission (ICD-10 - F10.21) 06/02/2024 Alcohol dependence, in remission (ICD-10 - F10.21) 06/02/2024 Encounter for screening for depression (ICD-10 - Z13.31) 06/02/2024 Encounter for screening for cardiovascular disorders (ICD-10 - Z13.6) 06/02/2024 Nicotine use (ICD-10 - Z72.0) 12/10/2023 Other Stable, continue current medications. Refills sent in. Patient educated on all medications including potential benefits, side effects, risks. Educated on proper dosing schedule and importance of compliance. 06/02/2024 Other Stable, cont current medications. Manic episode resolved on its own. Kiana pattern-generally emerges in January/Hol season and spring time. Discussed we will plan to have apts in July and January every year. Also educated to discuss with and sister when they notice symptoms to contact office, BRYON signed today. Patient educated on all medications including potential benefits, side effects, risks. Educated on proper dosing schedule and importance of compliance. -Assessment and treatment plan reviewed with patient. -Compliance with treatment plan importance discussed. -Discussed the risks/benefits of this medication -Discussed medication side effects. -Contact office if symptoms worsen. -Discussed that it can take up to 6-8 weeks to see full therapeutic effects of psychotropic medications. -Crisis prevention hotline [phone]. Plan Of Treatment Next Appt Details Provider Name:Sofi Jimenez, 07/28/2024 09:45:00 AM, [address], [facility] [address], [place], [address], Provider Name:Sofi Jimenez, 01/26/2025 09:45:00 AM, [address], [facility] [address], [place], [address], Insurance Providers Payer Name Payer Address Payer Phone Subscriber Number Group Number Insured Name Patient Relationship to Insured Coverage Start Date Coverage End Date [facility] [address] [place] [address] [id number] MOR MEAD Self - patient is the insured Medical (General) History Medical History History ICD Code Problems: Chronic alcoholism in remissio n Generalized anxiety disorder Recurrent major depression in remission , Surgical History Surgery Date(Month/Year) Hysterectomy age 41 Hospitalization History Reason Date(Month/Year) [facility] admission around 2009
--- OUTSIDE RECORDS SUMMARY | 2024-07-12 13:22 | XMS_ITS | Encounter Summary ---
Author Organization [facility] Healthcare Address [address] [place] [address] Care Team Providers Care Fast Foods Worker Name Role Phone Ventura Stewart MD Primary Care Provider [phone] Encounter Details Date Type Department Care Team (Late st Contact Info) Description 11/04/2017 Telephone [facility] [address] [place] [address] Victor Hugo Tucker MD [address] [address] Social History Tobacco Use Types Packs/Day Years Used Date Smoking Tobacco: Smoker, Current Status Unknown Comments Unknown Sex and Gender Information Value Date Recorded Sex Assigned at Not on file Legal Sex Female 10:49 PM OR RN Gender Identity Not on file Sexual Orientation Not on file documented as of this encounter Plan of Treatment Not on file documented as of this encounter Visit Diagnoses Not on filedocumented in this encounter Additional Health Concerns Infection Onset Date Last Indicated Resolved Time COVID: Suspected 11/06/2020 11/06/2020 11/06/2020 6:03 PM CDT documented as of this encounter Care Teams Fast Foods Worker Relationship Specialty Start Date End Date Ventura Stewart MD [address] [place], [place] [id number] PCP - General 06/30/16 documented as of this encounter
--- OUTSIDE RECORDS SUMMARY | 2024-07-12 13:22 | XMS_ITS | Encounter Summary ---
Author Organization [facility] Healthcare Address [address] [place] [address] Care Team Providers Care Bundle Wrapper Name Role Phone Ventura Stewart MD Primary Care Provider [phone] Reason for Visit * Reason Onset Date Comments Med Refill 08/24/2017 [facility] Encounter Details Date Type Department Care Team (Late st Contact Info) Description 08/24/2017 Telephone [facility] at [address] [place] [address] Victor Hugo Tucker MD [address] [address] Med Refill (Tramadol ER 100, send to [facility] in [place]) Social History Tobacco Use Types Packs/Day Years Used Date Smoking Tobacco: Smoker, Current Status Unknown Comments Unknown Sex and Gender Information Value Date Recorded Sex Assigned at Not on file 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
--- OUTSIDE RECORDS SUMMARY | 2024-07-12 13:22 | XMS_ITS | Encounter Summary ---
Author Organization [facility] Healthcare Address [address] [place] [address] Care Team Providers Care Ready Mix Truck Driver Name Role Phone Ventura Stewart MD Primary Care Provider [phone] Reason for Visit * Reason Onset Date Comments Med Refill 08/22/2020 Encounter Details Date Type Department Care Team (Late st Contact Info) Description 08/22/2020 Telephone [facility] [place] [facility] [address] [facility] [address] [place] [address] Radha Hubbard MD PhD [address] [facility] [address] [id number] [place], [place] [id number] Med Refill Social History Tobacco Use Types Packs/Day Years Used Date Smoking Tobacco: Every Day Cigarettes 1 40 Smokeless Tobacco: Never Alcohol Use Standard Drinks/Week Comments Not Currently 0 (1 standard drink = 0.6 oz pur e alcohol) Recovering alcoholic. 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 documented as of this encounter Visit Diagnoses Not on filedocumented in this encounter Additional Health Concerns Infection Onset Date Last Indicated Resolved Time COVID: Suspected 11/06/2020 11/06/2020 11/06/2020 6:03 PM CDT documented as of this encounter Care Teams Ready Mix Truck Driver Relationship Specialty Start Date End Date Ventura Stewart MD [address] [place] [address] PCP - General 06/30/16 documented as of this encounter
--- OUTSIDE RECORDS SUMMARY | 2024-07-12 13:22 | XMS_ITS | Encounter Summary ---
Author Organization [facility] Healthcare Address [address] [place] [address] Care Team Providers Care Protection Specialist Name Role Phone Ventura Stewart MD Primary Care Provider [phone] Encounter Details Date Type Department Care Team (Late st Contact Info) Description 09/30/2017 Telephone [facility] at [address] [facility] [place] [address] Victor Hugo Tucker MD [address] [address] Social History Tobacco Use Types Packs/Day Years Used Date Smoking Tobacco: Smoker, Current Status Unknown Comments Unknown Sex and Gender Information Value Date Recorded Sex Assigned at Not on file 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
--- OUTSIDE RECORDS SUMMARY | 2024-07-12 13:22 | XMS_ITS | Encounter Summary ---
Author Organization [facility] Healthcare Address [address] [place] [address] Care Team Providers Care Bingo Floater Name Role Phone Ventura Stewart MD Primary Care Provider [phone] Encounter Details Date Type Department Care Team (Late st Contact Info) Description 12/06/2018 Telephone [facility] [place] [facility] [address] [facility] [address] [place] [address] Radha Hubbard MD PhD [address] [facility] [address] [facility] [phone] [place], [place] [id number] Social History Tobacco Use Types Packs/Day Years Used Date Smoking Tobacco: Smoker, Current Status Unknown Cigarettes 1 40 Smokeless Tobacco: Never Alcohol Use Standard Drinks/Week Comments Not Currently 0 (1 standard drink = 0.6 oz pur e alcohol) Recovering alcoholic Comments Unknown Sex and Gender Information Value Date Recorded Sex Assigned at Not on file 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 documented as of this encounter Visit Diagnoses Not on filedocumented in this encounter Additional Health Concerns Infection Onset Date Last Indicated Resolved Time COVID: Suspected 11/06/2020 11/06/2020 11/06/2020 6:03 PM CDT documented as of this encounter Care Teams Bingo Floater Relationship Specialty Start Date End Date Ventura Stewart MD [address] [place] [address] PCP - General 06/30/16 documented as of this encounter
--- OUTSIDE RECORDS SUMMARY | 2024-07-12 13:22 | XMS_ITS | Referral Summary ---
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 Insurance [facility] [employer] Care Teams Automobile Service Station Manager Relationship Specialty Start Date End Date Ventura Stewart MD [address] [place] [address] PCP - General 06/30/16
--- OUTSIDE RECORDS SUMMARY | 2024-07-12 13:22 | XMS_ITS | Encounter Summary ---
Author Organization [facility] Healthcare Address [address] [place] [address] Care Team Providers Care Handbag Parts Cutter Name Role Phone Ventura Stewart MD Primary Care Provider [phone] Encounter Details Date Type Department Care Team (Late st Contact Info) Description 07/18/2021 Telephone [facility] [place] [facility] [address] [facility] [address] [place] [address] Radha Hubbard MD PhD [address] [facility] [address] [facility] [phone] [place], [place] [id number] Social History Tobacco Use Types Packs/Day Years Used Date Smoking Tobacco: Every Day Cigarettes 1 40 Smokeless Tobacco: Never Comments:info given Alcohol Use Standard Drinks/Week Comments [...] on file 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 Author CCM Chronic Pain Care Plan Chronic Care Management No change(06/20 2:47 PM CDT) No Strehl, Corin M., RN Note: Problem: Chronic Pain Goals: 1. [...] lighting, especially on stairs Contact your local [facility] for information on exercise, fall prevention [...] lighting, especially on stairs Contact your local [facility] or [facility] for information on exercise, fall prevention programs, or options for improving home safety. documented as of this encounter Visit Diagnoses Not on filedocumented in this encounter Care Teams Handbag Parts Cutter Relationship Specialty Start Date End Date Ventura Stewart MD [address] [place] [place] [address] PCP - General 06/30/16 documented as of this encounter
--- OUTSIDE RECORDS SUMMARY | 2024-07-12 13:22 | XMS_ITS | Encounter Summary ---
Author Organization [facility] Address 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
--- OUTSIDE RECORDS SUMMARY | 2024-07-12 13:22 | XMS_ITS | Encounter Summary ---
Author Organization [facility] Healthcare Address [address] [place] [address] Care Team Providers Care Sas Developer Analyst Name Role Phone Ventura Stewart MD Primary Care Provider Encounter Details Date Type Department Care Team (Late st Contact Info) Description 08/30/2017 Telephone [facility] at [address] [place] [address] Misty Armenta M.A. 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
[2024-07-12 19:58] LABS: Hematocrit 41.5 % (37.0-47.0); Hemoglobin 13.4 g/dL (12.0-15.0); Mean Corpuscular HGB Conc 32.3 g/dl (32-36); Mean Corpuscular Hemoglobin 31.8 pg (26-34); Mean Corpuscular Volume 98.3 fl (80-100); Mean Platelet Volume 12.5 fl (7.4-10.4); Platelet Count Result 197 k/mm3 (150-375); Red Blood Count 4.22 M/mm3 (4.2-5.4); Red Cell Distribution Width 12.8 % (11.5-14.5); White Blood Count 7.2 K/mm3 (4.5-10.0)
[2024-07-12 21:15] LABS: Alanine Aminotransferase 19 U/L (6-35); Albumin Level 4.4 g/dL (3.5-5.1); Alkaline Phosphatase 76 U/L (38-126); Anion Gap 9 mmol/L (4-12); Aspartate Amino Transferase 29 U/L (14-36); Bilirubin,Total 0.3 mg/dL (0.2-1.3); Blood Urea Nitrogen 8 mg/dL (7-17); Calcium 9.1 mg/dL (8.4-10.2); Carbon Dioxide 27 mmol/L (22-30); Chloride 101 mmol/L (98-107); Cholesterol 201 mg/dL (0-200); Estimated Glomerular Filt Rate > 60; Glucose 78 mg/dL (65-110); HDL Direct 69 mg/dL; Potassium 4.2 mmol/L (3.4-5.0); Sodium 137 mmol/L (137-145); Triglycerides 78 mg/dL (<150)
[2024-07-12 21:26] LABS: LDL Cholesterol Direct 90 mg/dL
== END 2024-07-12 11:21 | disposition home or self-care (01) ==
LOC: ANHGOSHLAB 11:22
PROVIDERS: PCP Family Medicine; Visit Provider Family Medicine
DX: R74.8 Abnormal levels of other serum enzymes (principal); E78.5 Hyperlipidemia, unspecified; Z79.899 Other long term (current) drug therapy
CPT/HCPCS: 36415; 80053; 80061; 84443; 85027

== ENCOUNTER 2024-07-21 16:00 | Outpatient (CLI) | payer OTHER, SELFPAY ==
--- NOTE | ~2024-07-21 | CT_ITS ---
CT Scan of the Chest without Contrast: Clinical Indication: Cancer screening, nicotine dependence Technique: Contiguous sections were acquired throughout the chest without intravenous contrast. Dose reduction technique was used on this scan by utilizing automated exposure control and iterative recon struction technique. The dose-length product (DLP) was 81.80 mGy-cm. COMPARISON: 01/26/2022 Findings: There is no evidence of any significant mediastinal, hilar or axillary lymphadenopathy. The mediastin al soft tissues appear normal. There is no evidence of pleural or pericardial effusion. The lungs are clear. No pulmonary nodules or infiltrates are noted. Images through the upper abdomen reveal no abnormalities. Impression: Lung RADS 1: Negative. 12 month follow-up screening CT advised. Reviewed, dictated and finalized at location . Impression: Lung RADS 1: Negative. 12 month follow-up screening CT advised.
== END 2024-07-21 16:01 | disposition home or self-care (01) ==
PROVIDERS: PCP Family Medicine; Visit Provider Family Medicine
DX: Z12.2 Encounter for screening for malignant neoplasm of respiratory organs (principal); Z87.891 Personal history of nicotine dependence
CPT/HCPCS: 71271

== ENCOUNTER 2024-07-24 12:20 | Outpatient (CLI) | payer OTHER, SELFPAY ==
--- NOTE | ~2024-07-24 | MM_ITS ---
EXAMINATION: MM screening miri BI w breanna HISTORY: Screening TECHNIQUE: Craniocaudal and mediolateral oblique 3-D tomosynthesis images were obtained and synthetic 2-D images were generated. CAD analysis was submitted and interpreted. COMPARISON: Comparison to multiple prior studies sequentially, with oldest reviewed study dated 11/2015. BREAST PARENCHYMAL COMPOSITION: Not dense: There are scattered areas of fibroglandular density. FINDINGS: There is no evidence of suspicious mass, calcification, or architectural distortion to sugg est malignancy in either breast. There has been no suspicious interval change. IMPRESSION: 1. No mammographic evidence of malignancy. 2. Recommend routine screening mammography in one year. BI-RADS Category 1: Negative Reviewed, dictated and finalized at location A.
== END 2024-07-24 12:21 | disposition home or self-care (01) ==
LOC: MICIMG 12:21
PROVIDERS: PCP Family Medicine; Visit Provider Family Medicine
DX: Z12.31 Encounter for screening mammogram for malignant neoplasm of breast (principal)
CPT/HCPCS: 77063; 77067

== ENCOUNTER 2024-08-24 10:20 | Outpatient (CLI) | payer OTHER, SELFPAY ==
--- NOTE | ~2024-08-24 | XR_ITS ---
Left Shoulder Technique: AP and scapular Y views were obtained. Clinical History: Pain Findings: No fracture or dislocation is seen. Osseous alignment is anatomic. The glenohumeral and acr omioclavicular joint spaces are preserved. Soft tissues are unremarkable. Impression: Unremarkable left shoulder radiographs. Reviewed, dictated and finalized at [facility]. Impression: Unremarkable left shoulder radiographs.
== END 2024-08-24 10:21 | disposition home or self-care (01) ==
LOC: GOSHIMG 10:20
PROVIDERS: PCP Family Medicine; Visit Provider Family Medicine
DX: M25.512 Pain in left shoulder (principal)
CPT/HCPCS: 73030

== ENCOUNTER 2025-01-24 11:38 | Outpatient (CLI) | payer OTHER, SELFPAY ==
[2025-01-24 14:00] LABS: Hematocrit 40.4 % (37.0-47.0); Hemoglobin 13.0 g/dL (12.0-15.0); Mean Corpuscular HGB Conc 32.2 g/dl (32-36); Mean Corpuscular Hemoglobin 31.3 pg (26-34); Mean Corpuscular Volume 97.3 fl (80-100); Platelet Count Result 188 k/mm3 (150-375); Red Blood Count 4.15 M/mm3 (4.2-5.4); White Blood Count 7.8 K/mm3 (4.5-10.0)
[2025-01-24 14:07] LABS: Alanine Aminotransferase 15 U/L (6-35); Albumin Level 4.5 g/dL (3.5-5.1); Alkaline Phosphatase 76 U/L (38-126); Anion Gap 6 mmol/L (4-12); Aspartate Amino Transferase 33 U/L (14-36); Bilirubin,Total 0.4 mg/dL (0.2-1.3); Blood Urea Nitrogen 12 mg/dL (7-17); Calcium 8.9 mg/dL (8.4-10.2); Carbon Dioxide 26 mmol/L (22-30); Chloride 103 mmol/L (98-107); Cholesterol 168 mg/dL (0-200); Estimated Glomerular Filt Rate > 60; Glucose 101 mg/dL (65-110); HDL Direct 71 mg/dL; Potassium 4.3 mmol/L (3.4-5.0); Sodium 135 mmol/L (137-145); Total Protein 7.1 g/dL (6.3-8.2); Triglycerides 59 mg/dL (<150)
[2025-01-24 14:37] LABS: Thyroid Stimulating Hormone 1.160 uIU/mL (0.465-4.680)
[2025-01-31 18:08] LABS: Summary Report (Summary) FINAL (.)
== END 2025-01-24 11:39 | disposition home or self-care (01) ==
LOC: ANHGOSHLAB 11:39
PROVIDERS: PCP Family Medicine; Visit Provider Family Medicine
DX: E78.5 Hyperlipidemia, unspecified (principal); R74.8 Abnormal levels of other serum enzymes; Z79.899 Other long term (current) drug therapy
CPT/HCPCS: 36415; 80053; 80061; 80307; 84443; 85027